=== PATIENT | female | born 1940 | race Two or more races ===

== ENCOUNTER 2017-01-07 10:40 | Inpatient (IN) | payer OTHER, MEDICARE ==
--- NOTE | 2017-01-07 10:48 | PDOC ---
History of Present Illness <Davin Shah - Last Filed: 01/07/17 11:57> - General History Source: Patient Exam Limitations: No Limitations - History of Present Illness Initial Comments: 01/07/17 13:52 Patient is a 76 year old female with a significant past medical history of hypertension, aortic valve repair ( 2 weeks post op ) and cervical spine stenosis who presents to the ED with heaviness and numbness to the left arm since 9:30 AM today. Patient was having breakfast around 9:30 was complaining of left arm heaviness and tingling numbness of the right arm. Patient was also complaining of a little dizziness and nausea during the episode this morning. Patient had an aortic valve repair about 2 weeks ago and had a CT done 10 days ago with same symptoms at the hospital she had a surgery in. Patient also had similar episode 6 years ago and was diagnosed with cervical spine stenosis. Patient saw auto accessories installer 2 weeks ago and had normal blood work. Patient denies any headache, facial tingling, numbness or weakness, no lower extermity sypmtoms, n/v, f/c, cp, palpitations, sob. <Ntahalia Dickson - Last Filed: 01/07/17 13:53> - General Chief Complaint: CVA/TIA Stated Complaint: LEFT ARM WEAKNESS Time Seen by Provider: 01/07/17 10:48 Past History - Past Medical History Anemia: No Asthma: No Cancer: No Cardiac Disorders: No CVA: No COPD: No CHF: No Dementia: No Diabetes: Yes GI Disorders: No Disorders: No HTN: Yes Hypercholesterolemia: No Liver Disease: No Seizures: No Thyroid Disease: No - Surgical History Abdominal Surgery: No Appendectomy: No Cardiac Surgery: No Cholecystectomy: Yes (LAP. CHOLECYS) Lung Surgery: No Neurologic Surgery: No Orthopedic Surgery: No - Psycho/Social/Smoking Cessation Hx Suicidal Ideation: No Smoking History: Never smoked Hx Alcohol Use: No Drug/Substance Use Hx: No Substance Use Type: None Hx Substance Use Treatment: No <Davin Shah - Last Filed: 01/07/17 11:57> <Nathalia Dickson - Last Filed: 01/07/17 13:53> - Past Medical History Allergies/Adverse Reactions: Allergies Allergy/AdvReac Type Severity Reaction Status Date / Time No Known Drug Allergies Allergy Verified 01/07/17 10:46 Home Medications: Ambulatory Orders Sitagliptin Phos/Metformin HCl [Janumet 50-500 mg Tablet] 1 tab PO BID 08/13/15 Acetaminophen [Tylenol] 650 mg PO Q6H PRN 01/07/17 Aspirin [ASA -] 81 mg PO DAILY 01/07/17 Docusate Sodium [Colace -] 100 mg PO TID PRN 01/07/17 Metoprolol Tartrate [Lopressor] 125 mg PO DAILY 01/07/17 Olmesartan Medoxomil [Benicar (Nf)] 20 mg PO DAILY 01/07/17 Rosuvastatin Calcium [Crestor] 10 mg PO HS 01/07/17 Tramadol HCl [Ultram] 50 mg PO Q6H PRN 01/07/17 Review of Systems - Review of Systems Able to Perform ROS?: Yes Comments:: 01/07/17 13:52 CONSTITUTIONAL: No reported: Fever, Chills, Diaphoresis, Generalized Weakness, Malaise, Loss of Appetite HEENT: No reported: Rhinorrhea, Nasal Congestion, Throat Pain, Throat Swelling, Difficulty Swallowing, Mouth Swelling, Ear Pain, Eye Pain, Visual Changes CARDIOVASCULAR: No reported: Chest Pain, Syncope, Palpitations, Irregular Heart Rate, Lightheadedness, Peripheral Edema RESPIRATORY: No reported: Cough, Shortness of Breath, SOB with Exertion, Orthopnea, Wheezing , Stridor, Hemoptysis GASTROINTESTINAL: No reported: Abdominal pain, Abdominal Distension, Nausea, Vomiting, Diarrhea, Constipation, Melena, Hematochezia GENITOURINARY: No reported: Dysuria, Frequency, Urgency, Hesitancy, Flank Pain, Genital Pain MUSCULOSKELETAL: Reported: Left arm heaviness. No reported: Myalgia, Arthralgia, Joint Swelling, Back pain, Neck Pain SKIN: No reported: Rash, Itching, Pallor HEMEATOLOGIC/IMMUNOLOGIC: No reported: Easy Bleeding, Easy Bruising, Lymphadenopathy, Frequent infections ENDOCRINE: No reported: Unexplained Weight Gain, Unexplained Weight Loss, Heat Intolerance , Cold Intolerance NEUROLOGIC: No reported: Headache, Focal Weakness, Paresthesias, Vertigo, Lightheadedness, Unsteady Gait, Seizure, Mental Status Changes, Incontinence PSYCHIATRIC: No reported: Anxiety, Depression <Nathalia Dickson - Last Filed: 01/07/17 13:53> *Physical Exam - Vital Signs Last Vital Signs Temp Pulse Resp BP Pulse Ox 97.8 F 64 18 120/71 99 01/07/17 13:13 01/07/17 13:13 01/07/17 13:13 01/07/17 13:13 01/07/17 13:46 - Physical Exam Comments: 01/07/17 13:53 GENERAL: The patient is awake, alert, and fully oriented, Nontoxic - in no acute distress. HEAD: Normocephalic, atraumatic. EYES: extraocular movements intact, sclera anicteric, conjunctiva clear. ENT: Normal voice, Moist mucous membranes. NECK: Normal range of motion, supple LUNGS/CHESt: sternal wound c/d/i, non erythemadous, Breath sounds equal, HEART: Regular rate and rhythm, without murmur, rub or gallop. ABDOMEN: Soft, nontender, normoactive bowel sounds. No guarding, no rebound.No CVA tenderness EXTREMITIES: Normal range of motion, no edema. NEUROLOGICAL: No facial assymetry, Normal speech, PSYCH: Normal mood, normal affect. SKIN: Warm, Dry, normal turgor. NEURO: Mental status: The patient is oriented x3. 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 romberg negative Cerebellar: Wqaawr-[id number] is normal in both upper extremities. Heel-knee- garnett is normal in both lower extremities. rapid alternating movements are normal. Reflexes: 2+ and symmetric in the upper and lower extremities. Gait: deferred <Nathalia Dickson - Last Filed: 01/07/17 13:53> NIH Stroke Scale - Last Known Well Date/Time & Onset Date Last Known Well: 01/07/17 Time Last Known Well: 09:30 - Initial Evaluation Level of consciousness: Alert Ask patient the month and their age: Answers both correctly Ask patient to open & close eyes; make fist and let go: Obeys both correctly Best gaze (horizontal eye movement): Normal Visual field testing: No visual field loss Facial paresis (Show teeth/raise eyebrows/close eyes tight): Normal symmetrical movement Motor Function: Left Arm: Drift Motor Function: Right Arm: Normal (extends arm 90 (or 45) degrees for 10 seconds without drift Motor Function: Left Leg: Normal (extends leg 30 degrees for 5 seconds without drift) Motor Function: Right Leg: Normal (extends leg 30 degrees for 5 seconds without drift) Limb Ataxia: No ataxia Sensory(Use pinprick test arms,legs,trunk,face/side to side): Normal Best language (Describe picture, name items, read sentences): No Aphasia Dysarthria (read several words): Normal articulation Extinction and Inattention: No abnormality - Total Score NIH Stroke Scale Score: 1 <Davin Shah - Last Filed: 01/07/17 11:57> tPA Exclusion Checklist 0-3hr - Time Elapsed Date last known well: 01/07/17 Time last known well: 09:30 Elaspsed time: Day(s) and 2 Hour(s) and 27 Minutes - Thrombolytic Therapy Candidate Is the patient eligible for Thrombolytic Therapy?: No - Relative Exclusion Criteria 0-3h Major surgery or serious trauma w/in previous 14 days: Yes - Ineligibility reason(s) Reasons No tPA given: See reason(s) noted above <Davin Shah - Last Filed: 01/07/17 11:57> Heart Score/ECG Review - ECG Impressions Comment:: 01/07/17 11:58 Twelve-lead EKG was performed and reviewed by me. There is normal sinus rhythm with a normal rate. Rate o f73 The axis is normal. Right bundle branch block left Anterior fasicular block <Ricky Shahan - Last Filed: 01/07/17 11:57> Critical Care Time/MDM Note - Medical Decision Making Note: 01/07/17 10:51 76y F hx of recent aoritc valve replacement, cervical spine stenosis, htn, presenting with sudden onset of L arm heaviness starting approximately 9:30 am, pt endorses mild headachhe this morning, denies any other speech changes, leg weakness, numbness/tingling/weakness. On arrival the patient had mild L arm drift, and code hudson was activated. BGM 236. AFter further discussoin with family members, apparently the patient had similar episodes of the weakness in the past and was dx with cervical spine stenosis (MRI from 2014), also had similar sypmtoms 10 day ago at [facility] after post op for her ao valve replacement (bioprosthetic) and had a negative CT head. suspect her sypmtoms maybe secondarry to her stenosis vs. cva. 01/07/17 11:32 ct head negative NIHSS = 1 pt is not a TPA candidate due to low NIHSS and recent major surgery will place in observation status 01/07/17 11:57 <Davin Shah - Last Filed: 01/07/17 11:57> - Medical Decision Making Note: 01/07/17 13:53 Documentation prepared by SCOTT Vivas, acting as medical aide for Davin Shah MD, /DO. <Nathalia Dickson - Last Filed: 01/07/17 13:53> Discharge Disposition - Discharge Dispostion Admit: Yes <Davin Shah - Last Filed: 01/07/17 11:57> <Nathalia Dickson - Last Filed: 01/07/17 13:53> - Diagnosis Left arm weakness - Discharge Dispostion Condition at time of disposition: Guarded
[2017-01-07] MEDS ORDERED: ACETAMINOPHEN 1000 MG/100 ML VIAL (NON FORMULARY) IVPB ONE (11:05)
[2017-01-07] MEDS ORDERED: LIDOCAINE 5% TOPICAL PATCH TP ONE (11:05)
[2017-01-07 11:09] LABS: BASOPHIL 3.3 % (0-2.0); EOSINOPHIL 5.5 % (0-4.5); MCH 28.3 pg (25.7-33.7); MCHC 33.6 g/dl (32.0-36.0); MEAN CELL VOLUME 84.1 fl (80-96); MEAN PLT VOLUME 8.4 fl (7.5-11.1); NEUTROPHILS 56.1 % (42.8-82.8); PLATELET COUNT 371 K/MM3 (134-434); RDW 13.1 % (11.6-15.6); WHITE BLOOD COUNT 7.2 K/mm3 (4.0-10.0)
[2017-01-07] MEDS ORDERED: ACETAMINOPHEN INJECTION 100 ML IVPB ONE (11:28)
[2017-01-07] MEDS ORDERED: ASPIRIN 81 MG CHEWABLE TABLETS PO ONE (11:43)
[2017-01-07] MEDS ORDERED: ASPIRIN 81 MG CHEWABLE TABLETS ONE (11:50)
[2017-01-07 11:54] LABS: ALBUMIN 3.1 g/dl (3.4-5.0); CALCIUM 8.9 mg/dL (8.5-10.1); CREATININE 1.3 mg/dL (0.55-1.02)
[2017-01-07 11:57] LABS: BILIRUBIN,TOTAL 0.4 mg/dL (0.2-1.0); TOT PROT 6.4 g/dl (6.4-8.2); TROPONIN I 0.06 ng/ml (0.00-0.05)
[2017-01-07 12:00] LABS: INR 1.16 (0.82-1.09); PROTHROMBIN TIME (PATIENT) 12.8 SEC (9.98-11.88)
--- NOTE | 2017-01-07 13:12 | CONSULT ---
Consult Consult Specialty:: Neurology Reason for Consultation:: Left arm weakness - History of Present Illness History of Present Illness: 76 year old woman with history of recent aortic valve replacement, cervical stenosis, hypertension, presents to ED with new onset of left arm weakness and sensory loss. The patient was eating breakfast at 930 am when she noted new onset of left arm weakness. On arrival, blood sugar 236. CT head showed no acute abnormalities. Exam reveals mild left arm weakness/sensory loss without any other neurological findings. Patient states she was on aspirin but stopped two days ago. As per discussion with family member, she has had similar episodes of left arm weakness in the past, and on post op day [address] [facility] head done at that time showed no acute pathology. - History Source History Provided By: Patient - Past Medical History Cardio/Vascular: Yes: HTN, Other (aortic valve replacement) - Alcohol/Substance Use Hx Alcohol Use: No - Smoking History Smoking history: Never smoked Have you smoked in the past 12 months: No Home Medications - Allergies Allergies/Adverse Reactions: Allergies Allergy/AdvReac Type Severity Reaction Status Date / Time No Known Drug Allergies Allergy Verified 01/07/17 10:46 - Home Medications Home Medications: Ambulatory Orders Sitagliptin Phos/Metformin HCl [Janumet 50-500 mg Tablet] 1 tab PO BID 08/13/15 Acetaminophen [Tylenol] 650 mg PO Q6H PRN 01/07/17 Aspirin [ASA -] 81 mg PO DAILY 01/07/17 Docusate Sodium [Colace -] 100 mg PO TID PRN 01/07/17 Metoprolol Tartrate [Lopressor] 125 mg PO DAILY 01/07/17 Olmesartan Medoxomil [Benicar (Nf)] 20 mg PO DAILY 01/07/17 Rosuvastatin Calcium [Crestor] 10 mg PO HS 01/07/17 Tramadol HCl [Ultram] 50 mg PO Q6H PRN 01/07/17 Review of Systems - Review of Systems Constitutional: reports: No Symptoms Eyes: reports: No Symptoms HENT: reports: No Symptoms Respiratory: reports: No Symptoms Neurological: reports: Numbness, Weakness Physical Exam Vital Signs: Vital Signs Temperature Pulse Rate 70 01/07/17 11:22 Respiratory Rate 18 01/07/17 11:22 Blood Pressure 93/67 01/07/17 11:22 O2 Sat by Pulse Oximetry (%) 98 01/07/17 11:22 Constitutional: Yes: No Distress, Calm Eyes: Yes: Conjunctiva Clear, EOM Intact HENT: Yes: Atraumatic, Normocephalic Neurological: Yes: Alert, Oriented, Cran Nerves II-XII Intact (left arm 4/5 muscle strength, ? sensory deficit left arm in no particular nerve distribution , right 5/5) Assessment/Plan 76 year old woman with history of recent aortic valve replacement, cervical stenosis, hypertension, presents to ED with new onset of left arm weakness and sensory loss. The patient was eating breakfast at 930 am when she noted new onset of left arm weakness. On arrival, blood sugar 236. CT head showed no acute abnormalities. Exam reveals mild left arm weakness/sensory loss without any other neurological findings. Patient states she was on aspirin but stopped two days ago. As per discussion with family member, she has had similar episodes of left arm weakness in the past, and on post op day [address] [facility] head done at that time showed no acute pathology. Left arm weakness Differential diagnosis includes stroke, TIA, cervical radiculopathy / myelopathy NIHSS 2 Patient was not a TPA candidate due to recent surgery Unable to perform MRI brain or cervical spine MRI due to wires in chest CT head shows no acute findings Recommend CT neck without contrast Recommend aspirin 81 mg daily if OK from cardiac standpoint (recent surgical procedure) Ordered carotid dopplers If above workup is unrevealing, consider NCV/EMG once outpatient to rule out cervical radiculopathy / myelopathy secondary to cervical stenosis Neuro checks Will follow
[2017-01-07 14:08] VITALS: BMI 26.8
--- NOTE | 2017-01-07 14:25 | HP ---
Admitting History and Physical - Admission Chief Complaint: Acute onset of left arm weakness and back pain History of Present Illness: 76 F, recent aortic valve replacement (bioprosthetic), cervical stenosis, and hypertension. 2 previous episodes of left arm weakness and pain thought to be due to spinal stenosis. On the 3 or 4th postop day after valve replacement had a similar episode. Workup was unrevealing. This AM at 9:30, while having breakfast, she developed acute onset of left scapular and back pain with associated left arm weakness. She also reported slight dizziness. No CP or SOB. No BOV or HARDEN. On arrival BGM and VS were stable. Awake and alert and responsive. She is noted to have a mild left hand weakness and mild decrease in sensation. CT Head: No acute pathology. History Source: Patient, Family Member Limitations to Obtaining History: No Limitations - Past Medical History Cardiovascular: Yes: HTN, Other (aortic valve replacement) ...: No - Smoking History Smoking history: Never smoked Have you smoked in the past 12 months: No - Alcohol/Substance Use Hx Alcohol Use: No Home Medications - Allergies Allergies/Adverse Reactions: Allergies Allergy/AdvReac Type Severity Reaction Status Date / Time No Known Drug Allergies Allergy Verified 01/07/17 10:46 - Home Medications Home Medications: Ambulatory Orders Sitagliptin Phos/Metformin HCl [Janumet 50-500 mg Tablet] 1 tab PO BID 08/13/15 Acetaminophen [Tylenol] 650 mg PO Q6H PRN 01/07/17 Aspirin [ASA -] 81 mg PO DAILY 01/07/17 Docusate Sodium [Colace -] 100 mg PO TID PRN 01/07/17 Metoprolol Tartrate [Lopressor] 125 mg PO DAILY 01/07/17 Olmesartan Medoxomil [Benicar (Nf)] 20 mg PO DAILY 01/07/17 Rosuvastatin Calcium [Crestor] 10 mg PO HS 01/07/17 Tramadol HCl [Ultram] 50 mg PO Q6H PRN 01/07/17 Review of Systems - Review of Systems Constitutional: denies: Chills, Fever, Lethargy, Loss of Appetite, Malaise, Night Sweats, Unintentional Wgt. Loss Eyes: reports: No Symptoms HENT: reports: No Symptoms Neck: reports: No Symptoms Cardiovascular: denies: Chest Pain, Palpitations, Shortness of Breath Respiratory: denies: Cough, Hemoptysis, PND, Snoring, SOB, SOB on Exertion, Wheezing Gastrointestinal: reports: No Symptoms Genitourinary: reports: No Symptoms Breasts: reports: No Symptoms Reported Musculoskeletal: reports: Back Pain, Decreased ROM, Muscle Pain, Muscle Cramps Integumentary: reports: Wound, Other (Healing sternal wound) Neurological: reports: Dizziness, Numbness, Parasthesia, Pre-Existing Deficit, Weakness. denies: Change in Speech, Confusion, Headache, Seizure, Syncope, Tremors Endocrine: reports: No Symptoms Hematology/Lymphatic: reports: No Symptoms Psychiatric: reports: No Symptoms Physical Examination Vital Signs: Vital Signs Temperature 97.8 F 01/07/17 13:13 Pulse Rate 64 01/07/17 13:13 Respiratory Rate 18 01/07/17 13:13 Blood Pressure 120/71 01/07/17 13:13 O2 Sat by Pulse Oximetry (%) 99 01/07/17 13:46 Constitutional: Yes: No Distress, Calm Eyes: Yes: Conjunctiva Clear, EOM Intact HENT: Yes: Atraumatic, Normocephalic Neck: Yes: Supple, Trachea Midline Cardiovascular: Yes: Regular Rate and Rhythm Respiratory: Yes: Regular, CTA Bilaterally, Other (healing sternal wound) Gastrointestinal: Yes: WNL, Normal Bowel Sounds, Soft ...Rectal Exam: Yes: Deferred Renal/: Yes: WNL Musculoskeletal: Yes: Back Pain, Joint Stiffness, Muscle Pain, Muscle Weakness Extremities: Yes: WNL Edema: No Peripheral Pulses WNL: Yes Integumentary: Yes: Other (healing sternal wound) Wound/Incision: Yes: Clean/Dry, Well Approximated Neurological: Yes: WNL, Alert, Oriented, Weakness ...Motor Strength: LUE (mild weakness and decrease in sensation) Psychiatric: Yes: WNL, Alert, Oriented Imaging - Results Chest X-ray: Report Reviewed, Image Reviewed Cat Scan: Report Reviewed, Image Reviewed Problem List - Problems (1) Left arm weakness Code(s): R29.898 - OT SYMPTOMS AND SIGNS INVOLVING THE MUSCULOSKELETAL SYSTEM (2) Hypertension Code(s): I10 - ESSENTIAL (PRIMARY) HYPERTENSION (3) H/O aortic valve replacement Code(s): Z95.2 - PRESENCE OF PROSTHETIC HEART VALVE (4) Transient ischemic attack (TIA) Code(s): G45.9 - TRANSIENT CEREBRAL ISCHEMIC ATTACK, UNSPECIFIED (5) Spinal stenosis Code(s): M48.00 - SPINAL STENOSIS, SITE UNSPECIFIED Assessment/Plan PLAN: Primary Neuro event should be ruled out ASA given in ER No MRI due to recent surgery Neuro consult BP monitoring Serial Neuro exam O2 as needed Lidoderm patches IV Tylenol Avoid opiates Telemetry / Stroke unit monitoring Dr Ortez
[2017-01-07] MEDS ORDERED: ACETAMINOPHEN 1000 MG/100 ML VIAL (NON FORMULARY) IVPB PRN (14:40)
[2017-01-07] MEDS ORDERED: SODIUM CHLORIDE 1,000 ML IV SCH (14:45)
[2017-01-07] MEDS ORDERED: ACETAMINOPHEN 325 MG TABLET (FP) PO PRN (15:15)
--- NOTE | 2017-01-07 15:18 | CONSULT ---
Consultation: REQUESTING PROVIDER: Dr. Marr CONSULT REQUEST: We have been asked to medically evaluate this patient for critical care HISTORY OF PRESENT ILLNESS: 76 yo F w/ PMHx of HTN, cervical spine stenosis, aortic valve repair 2 weeks ago at [facility] admitted to the ICU for stroke. In the ED, she presented with numbness and weakness in L arm for 3 hours associated with dizziness and nausea. She stated she still has pressure like chest discomfort after valve replacement and it's similar to the discomfort prior to the surgery. It's substernal, pressure like, 6/10, non-radiating, associated with sob. Denies fever, chills, n/v, abd pain, vision change, slurred speech, or fall. REVIEW OF SYSTEMS: CONSTITUTIONAL: Absent: fever, chills, diaphoresis, generalized weakness, malaise, loss of appetite, weight change HEENT: Absent: rhinorrhea, nasal congestion, throat pain, throat swelling, difficulty swallowing, mouth swelling, ear pain, eye pain, visual changes CARDIOVASCULAR: chest pain Absent:, syncope, palpitations, irregular heart rate, lightheadedness, peripheral edema RESPIRATORY: shortness of breath, Absent: cough, dyspnea with exertion, orthopnea, wheezing, stridor, hemoptysis GASTROINTESTINAL: Absent: abdominal pain, abdominal distension, nausea, vomiting, diarrhea, constipation, melena, hematochezia GENITOURINARY: Absent: dysuria, frequency, urgency, hesitancy, hematuria, flank pain, genital pain MUSCULOSKELETAL: L shoulder and neck pain Absent: myalgia, arthralgia, joint swelling, back pain SKIN: Absent: rash, itching, pallor HEMATOLOGIC/IMMUNOLOGIC: Absent: easy bleeding, easy bruising, lymphadenopathy, frequent infections ENDOCRINE: Absent: unexplained weight gain, unexplained weight loss, heat intolerance, cold intolerance NEUROLOGIC: Absent: headache, focal weakness or paresthesias, dizziness, unsteady gait, seizure, mental status changes, bladder or bowel incontinence PSYCHIATRIC: Absent: anxiety, depression, suicidal or homicidal ideation, hallucinations. PHYSICAL EXAMINATION Last Vital Signs Temp Pulse Resp BP Pulse Ox 97.8 F 64 18 120/71 99 01/07/17 13:13 01/07/17 13:13 01/07/17 13:13 01/07/17 13:13 01/07/17 13:46 GENERAL: AAO x 3, in no distress HEAD: AT, NC EYES: pupils equal and non-reactive, sclera anicteric, conjunctiva clear. No lid lag. NECK: No local tenderness LUNGS: CTAB HEART: RRR, no murmur, regurg, rub ABDOMEN: Soft, nontender, not distended, normoactive bowel sounds, no guarding, no rebound, no masses MUSCULOSKELETAL: Limited ROM in L shoulder UPPER EXTREMITIES: 3/5 in L arm strength, sensation intact b/l. LOWER EXTREMITIES: 5/5 in all lower extremities, trace edema. NEUROLOGICAL: Cranial nerves II-XII intact. Normal speech CBCD WBC 7.2 K/mm3 (4.0-10.0) 01/07/17 10:54 RBC 4.26 M/mm3 (3.60-5.2) 01/07/17 10:54 Hgb 12.0 GM/dL (10.7-15.3) 01/07/17 10:54 Hct 35.8 % (32.4-45.2) 01/07/17 10:54 MCV 84.1 fl (80-96) 01/07/17 10:54 MCHC 33.6 g/dl (32.0-36.0) 01/07/17 10:54 RDW 13.1 % (11.6-15.6) 01/07/17 10:54 Plt Count 371 K/MM3 (134-434) 01/07/17 10:54 MPV 8.4 fl (7.5-11.1) 01/07/17 10:54 CMP Sodium 137 mmol/L (136-145) 01/07/17 10:54 Potassium 4.6 mmol/L (3.5-5.1) 01/07/17 10:54 Chloride 103 mmol/L (98-107) 01/07/17 10:54 Carbon Dioxide 23 mmol/L (21-32) 01/07/17 10:54 Anion Gap 11 (8-16) 01/07/17 10:54 BUN 25 mg/dL (7-18) H 01/07/17 10:54 Creatinine 1.3 mg/dL (0.55-1.02) H 01/07/17 10:54 Creat Clearance w eGFR 39.93 (>60) 01/07/17 10:54 Calcium 8.9 mg/dL (8.5-10.1) 01/07/17 10:54 Total Bilirubin 0.4 mg/dL (0.2-1.0) 01/07/17 10:54 AST 13 U/L (15-37) L 01/07/17 10:54 ALT 14 U/L (12-78) 01/07/17 10:54 Alkaline Phosphatase 64 U/L (45-117) 01/07/17 10:54 Total Protein 6.4 g/dl (6.4-8.2) 01/07/17 10:54 Albumin 3.1 g/dl (3.4-5.0) L 01/07/17 10:54 Intake & Output 01/04/17 01/05/17 01/06/17 01/07/17 23:59 23:59 23:59 23:59 Weight 68.719 kg Active Medications Generic Name Dose Route Start Last Admin Trade Name Freq PRN Reason Stop Dose Admin Acetaminophen 1,000 mg 01/07/17 14:40 Ofirmev Injection - IVPB 01/08/17 08:41 Q6H PRN FEVER OR PAIN Aspirin 81 mg 01/08/17 10:00 Ecotrin - PO DAILY LAURO Sodium Chloride 1,000 mls @ 50 mls/hr 01/07/17 14:45 Normal Saline - IV 01/08/17 14:38 ASDIR LAURO Imaging: Head CT on 01/07: negative for stroke or bleed Cervical spin CT w/o contrast on 01/07: posterior spondylolisthesis of C4 on C5. Carotid doppler on 01/07: no stenosis CXR on 01/07: no acute pathology ASSESSMENT/PLAN: 76 yo F w/ PMHx of HTN, cervical spine stenosis, aortic valve repair 2 weeks ago at [facility] admitted to the ICU for stroke workup. Neuro: CVA vs. Cervical radiculopathy - CT Head and carotid doppler negative, CVA less likely - CT cervical spine shows spondylolisthesis of C4 on C5 * consider outpatient EMG * physical therapy as needed - Lidocaine patch and IV tylenol for pain control * cont. colace for narcotic-induced constipation Cardiac: s/p aortic valve replacement - Performed 2 weeks ago - Cont. crestor, lopressor, olmesartan - Will restart ASA tomorrow Endo: NIDDM - On sliding scale - BGM FEN - NS 50cc/hr - Normal lytes - Diabetic diet Prophylaxis - DVT: SCDs - GI: not indicated Disposition - May be discharged home tomorrow Code status - Full code Visit type - Emergency Visit Emergency Visit: Yes ED Registration Date: 01/07/17 Care time: The patient presented to the Emergency Department on the above date and was hospitalized for further evaluation of their emergent condition. - New Patient This patient is new to me today: Yes Date on this admission: 01/07/17 - Critical Care Critical Care patient: Yes Total Critical Care Time (in minutes): 35 Critical Care Statement: The care of this patient involved high complexity decision making to prevent further life threatening deterioration of the patient 's condition and/or to evalute & treat vital organ system(s) failure or risk of failure.
[2017-01-07] MEDS ORDERED: DOCUSATE SODIUM 100 MG CAPSULE (FP) PO PRN (15:22)
[2017-01-07] MEDS: INSULIN SLIDING SCALE (NOVOLOG) 1 VIAL SQ SCH ×2 (16:30→21:23)
[2017-01-07 18:15] LABS: URINE APPEARANCE CLEAR; URINE BILIRUBIN NEGATIVE (NEGATIVE); URINE BLOOD NEGATIVE (NEGATIVE); URINE COLOR LTYELLOW; URINE GLUCOSE (UA) NEGATIVE (NEGATIVE); URINE KETONE NEGATIVE (NEGATIVE); URINE NITRITE NEGATIVE (NEGATIVE); URINE PROTEIN NEGATIVE (NEGATIVE); URINE UROBILINOGEN NEGATIVE E.U./dl (0.2-1.0)
[2017-01-07 18:28] LABS: URINE LEUK ESTERASE 1+ (NEGATIVE)
[2017-01-07 18:34] LABS: URINE MUCUS RARE; URINE RBC 1 /hpf (0-3); URINE WBC 8 /hpf (3-5)
[2017-01-07] MEDS ORDERED: PT OWN MED DRAWER 7, Y5N ONE (21:13)
[2017-01-07] MEDS: MUPIROCIN 2% TOPICAL OINTMENT FOR DECOLONIZATION NS SCH (21:23)
[2017-01-07] MEDS ORDERED: CHLORHEXIDINE GLUCONATE 4% CLEANSER FOR DECOLONIZATION TP SCH (22:00)
[2017-01-07] MEDS ORDERED: ROSUVASTATIN CA 10 MG TABLET (FP) PO SCH (22:00)
[2017-01-07] MEDS: ACETAMINOPHEN 325 MG TABLET (FP) PO PRN (22:50)
[2017-01-08 06:35] LABS: CALCIUM 8.7 mg/dL (8.5-10.1); MAGNESIUM 1.8 mg/dL (1.8-2.4)
[2017-01-08 06:36] LABS: CREATININE 0.9 mg/dL (0.55-1.02)
[2017-01-08] MEDS: INSULIN SLIDING SCALE (NOVOLOG) 1 VIAL SQ SCH ×2 (06:36→11:24)
[2017-01-08 08:21] LABS: TROPONIN I 0.06 ng/ml (0.00-0.05)
[2017-01-08] MEDS ORDERED: ARFORMOTEROL TARTRATE 15 MCG/2 ML VIAL NEB SCH (10:00)
[2017-01-08] MEDS ORDERED: ASPIRIN COATED 81 MG TABLET.EC PO SCH (10:00)
[2017-01-08] MEDS ORDERED: VALSARTAN 160 MG TABLET (UD) PO SCH (10:00)
[2017-01-08] MEDS ORDERED: METOPROLOL TARTRATE 50 MG TABLET (FP) PO SCH (10:00)
[2017-01-08] MEDS: ACETAMINOPHEN 325 MG TABLET (FP) PO PRN (10:30)
[2017-01-08] MEDS ORDERED: PT OWN MED DRAWER 7, Y5N ONE (10:58)
[2017-01-08] MEDS: MUPIROCIN 2% TOPICAL OINTMENT FOR DECOLONIZATION NS SCH (11:00)
[2017-01-08] MEDS ORDERED: MUPIROCIN 2% TOPICAL OINTMENT 22 GM TUBE TP SCH (11:30)
--- NOTE | 2017-01-08 12:10 | PN ---
Teaching Attending Note Name of Resident: Shakeel Buck ATTENDING PHYSICIAN STATEMENT I saw and evaluated the patient. I reviewed the resident's note and discussed the case with the resident. I agree with the resident's findings and plan as documented. SUBJECTIVE: Pt seen and examined in the ICU. Still with some fingertip pain 3rd and 4th digits. Repeat CT head unchanged this AM. OBJECTIVE: Last Vital Signs Temp Pulse Resp BP Pulse Ox 97.7 F 93 H 18 120/66 96 01/08/17 06:00 01/08/17 09:45 01/08/17 07:58 01/08/17 07:58 01/08/17 09:45 Intake & Output 01/05/17 01/06/17 01/07/17 01/08/17 23:59 23:59 23:59 23:59 Intake Total 150 600 Output Total 700 Balance -550 600 Weight 151 lb 8 oz Gen: NAD at rest Heart: RRR Lung: decreased breath sounds at the bases Abd: soft, nontender Ext: no edema CBC, BMP 01/07/17 10:54 01/08/17 05:15 Active Medications Acetaminophen (Tylenol -) 325 mg PO Q6H PRN PRN Reason: FEVER OR PAIN Last Admin: 01/08/17 10:30 Dose: 325 mg Arformoterol Tartrate (Brovana (Restricted To Pulmonology/Resp) -) 1 amp NEB BID [facility] Last Admin: 01/08/17 10:25 Dose: 1 amp Aspirin (Ecotrin -) 81 mg PO DAILY [facility] Last Admin: 01/08/17 10:59 Dose: 81 mg Chlorhexidine Gluconate (Hibiclens For Decolonization -) 1 applic TP HS [facility] Last Admin: 01/07/17 21:22 Dose: 1 applic Docusate Sodium (Colace -) 100 mg PO TID PRN PRN Reason: CONSTIPATION Sodium Chloride (Normal Saline -) 1,000 mls @ 50 mls/hr IV ASDIR [facility] Stop: 01/08/17 14:38 Last Admin: 01/07/17 16:38 Dose: 50 mls/hr Insulin Aspart (Novolog Vial Sliding Scale -) 0 vial SQ ACHS [facility] PRN Reason: Protocol Last Admin: 01/08/17 11:24 Dose: Not Given Metoprolol Tartrate (Lopressor -) 125 mg PO DAILY [facility] Last Admin: 01/08/17 10:59 Dose: 125 mg Mupirocin (Bactroban Ointment (For Decolonization) -) 1 applic NS BID [facility] Stop: 01/12/17 21:59 Last Admin: 01/08/17 11:00 Dose: 1 applic Mupirocin (Bactroban 2% Ointment -) 1 applic TP BID [facility] Rosuvastatin Calcium (Crestor -) 10 mg PO HS [facility] Last Admin: 01/07/17 21:22 Dose: 10 mg Valsartan (Diovan -) 160 mg PO DAILY [facility] Last Admin: 01/08/17 10:59 Dose: 160 mg ASSESSMENT AND PLAN: Left Arm Weakness r/o Cervical Radiculopathy r/o TIA Recent AVR Cervical Stenosis HTN - echocardiogram - CT head negative - BP control - OOB to chair - can d/c home if echocardiogram unremarkable
--- NOTE | 2017-01-08 12:43 | PN ---
Progress Note (short form) - Note Progress Note: Neurology follow up note Consult Specialty:: Neurology Reason for Consultation:: Left arm weakness - History of Present Illness History of Present Illness: 76 year old woman with history of recent aortic valve replacement, cervical stenosis, hypertension, presents to ED with new onset of left arm weakness and sensory loss. The patient was eating breakfast at 930 am when she noted new onset of left arm weakness. On arrival, blood sugar 236. CT head showed no acute abnormalities. Exam reveals mild left arm weakness/sensory loss without any other neurological findings. Patient states she was on aspirin but stopped two days ago. As per discussion with family member, she has had similar episodes of left arm weakness in the past, and on post op day [address] [place] head done at that time showed no acute pathology. 11/10 Patient seen and examined. Left arm weakness improved, mild left deltoid weakness limited by neck pain Repeat CT head no acute findings Echocardiogram pending - History Source History Provided By: Patient - Past Medical History Cardio/Vascular: Yes: HTN, Other (aortic valve replacement) - Alcohol/Substance Use Hx Alcohol Use: No - Smoking History Smoking history: Never smoked Have you smoked in the past 12 months: No Home Medications - Allergies Allergies/Adverse Reactions: Allergies Allergy/AdvReac Type Severity Reaction Status Date / Time No Known Drug Allergies Allergy Verified 01/07/17 10:46 - Home Medications Home Medications: Ambulatory Orders Sitagliptin Phos/Metformin HCl [Janumet 50-500 mg Tablet] 1 tab PO BID 08/13/15 Acetaminophen [Tylenol] 650 mg PO Q6H PRN 01/07/17 Aspirin [ASA -] 81 mg PO DAILY 01/07/17 Docusate Sodium [Colace -] 100 mg PO TID PRN 01/07/17 Metoprolol Tartrate [Lopressor] 125 mg PO DAILY 01/07/17 Olmesartan Medoxomil [Benicar (Nf)] 20 mg PO DAILY 01/07/17 Rosuvastatin Calcium [Crestor] 10 mg PO HS 01/07/17 Tramadol HCl [Ultram] 50 mg PO Q6H PRN 01/07/17 Review of Systems - Review of Systems Constitutional: reports: No Symptoms Eyes: reports: No Symptoms HENT: reports: No Symptoms Respiratory: reports: No Symptoms Neurological: reports: Numbness, Weakness Physical Exam Constitutional: Yes: No Distress, Calm Eyes: Yes: Conjunctiva Clear, EOM Intact HENT: Yes: Atraumatic, Normocephalic Neurological: Yes: Alert, Oriented, Cran Nerves II-XII Intact (left deltoid 4/5 , left tricep and bicep 5/5, hand grasp 5/5 left, remainder 5/5, intact to light touch) Assessment/Plan 76 year old woman with history of recent aortic valve replacement, cervical stenosis, hypertension, presents to ED with new onset of left arm weakness and sensory loss. The patient was eating breakfast at 930 am when she noted new onset of left arm weakness. On arrival, blood sugar 236. CT head showed no acute abnormalities. Left arm weakness, improved Differential diagnosis , cervical radic, tia Patient was not a TPA candidate due to recent surgery Unable to perform MRI brain or cervical spine MRI due to wires in chest CT head x2 shows no acute changes CT neck shows c4-c5 spondolysthesis CD no significant stenosis Recommend aspirin 81 mg daily if OK from cardiac standpoint (recent surgical procedure) Recommend NCV/EMG once outpatient to rule out cervical radiculopathy / myelopathy secondary to cervical stenosis Physical therapy for left arm OK from neuro standpoint to discharge if echocardiogram within normal limits
--- NOTE | 2017-01-08 14:50 | DS ---
Physical Exam: SUBJECTIVE: Patient seen and examined at bedside in ICU. She reported feeling better. Complained of L hand MCP joint pain. Otherwise no acute event overnight. Denies shortness of breath, acute chest pain, n/v, fever, chills, urinary or bowel symptoms. OBJECTIVE: Vital Signs Period Temp Pulse Resp BP Sys/Jama Pulse Ox Last 24 Hr 97.7 F-98.5 F 66-95 18-24 103-134/58-83 96-99 PHYSICAL EXAM GENERAL: AAO x 3, in no distress HEAD: AT, NC EYES: pupils equal and non-reactive, sclera anicteric, conjunctiva clear. No lid lag. NECK: No local tenderness LUNGS: CTAB HEART: RRR, no murmur, regurg, rub ABDOMEN: Surgical scar on center of chest, no sign of infection, crepitus, drainage; soft, nt, +bs, MUSCULOSKELETAL: Limited ROM in L shoulder UPPER EXTREMITIES: 4/5 in L arm strength, sensation intact b/l. LOWER EXTREMITIES: 5/5 in all lower extremities, trace edema. NEUROLOGICAL: Cranial nerves II-XII intact. Normal speech CBCD WBC 7.2 K/mm3 (4.0-10.0) 01/07/17 10:54 RBC 4.26 M/mm3 (3.60-5.2) 01/07/17 10:54 Hgb 12.0 GM/dL (10.7-15.3) 01/07/17 10:54 Hct 35.8 % (32.4-45.2) 01/07/17 10:54 MCV 84.1 fl (80-96) 01/07/17 10:54 MCHC 33.6 g/dl (32.0-36.0) 01/07/17 10:54 RDW 13.1 % (11.6-15.6) 01/07/17 10:54 Plt Count 371 K/MM3 (134-434) 01/07/17 10:54 MPV 8.4 fl (7.5-11.1) 01/07/17 10:54 CMP Sodium 142 mmol/L (136-145) 01/08/17 05:15 Potassium 4.6 mmol/L (3.5-5.1) 01/08/17 05:15 Chloride 107 mmol/L (98-107) 01/08/17 05:15 Carbon Dioxide 26 mmol/L (21-32) 01/08/17 05:15 Anion Gap 9 (8-16) 01/08/17 05:15 BUN 22 mg/dL (7-18) H 01/08/17 05:15 Creatinine 0.9 mg/dL (0.55-1.02) D 01/08/17 05:15 Creat Clearance w eGFR 39.93 (>60) 01/07/17 10:54 Calcium 8.7 mg/dL (8.5-10.1) 01/08/17 05:15 Total Bilirubin 0.4 mg/dL (0.2-1.0) 01/07/17 10:54 AST 13 U/L (15-37) L 01/07/17 10:54 ALT 14 U/L (12-78) 01/07/17 10:54 Alkaline Phosphatase 64 U/L (45-117) 01/07/17 10:54 Total Protein 6.4 g/dl (6.4-8.2) 01/07/17 10:54 Albumin 3.1 g/dl (3.4-5.0) L 01/07/17 10:54 Imaging: Head CT on 01/08: negative for stroke or bleed Head CT on 01/07: negative for stroke or bleed ECHO on 01/08: EF 47%, normal LVF and RVF, functional prosthetic valve, echodensity in RA (?artifact) Cervical spin CT w/o contrast on 01/07: posterior spondylolisthesis of C4 on C5. Carotid doppler on 01/07: no stenosis CXR on 01/07: no acute pathology HOSPITAL COURSE: Date of Admission:01/07/17 76 yo F w/ PMHx of HTN, cervical spine stenosis, aortic valve repair 2 weeks ago at [place] admitted to the ICU for stroke. On morning, she experienced L arm weakness, numbness, and tingling since 9:30am without change in speech, vision, sensation, consciousness, or focal weakness in other part of body. The symptoms lasted about 3 hours associated with dizziness and nausea. She stated she still has pressure like chest discomfort after valve replacement and it's similar to the discomfort prior to the surgery. It's substernal, pressure like, 6/10, non-radiating, associated with sob. Patient's surgical history and clinical presentation indicated stroke unlikely and tPA was contraindicated. First head CT was negative for stroke and cervical spin CT w/o contrast showed posterior spondylolisthesis of C4 on C5. On admission day 2, her weakness/numbness in the L upper extremity has improved. Repeat CT, ECHO and carotid doppler are all negative for embolic or thrombotic causes of stroke. Patient is advised to follow up with neurologist for EMG test and continue physical therapy. She's now in stable condition to be discharged home. Date of Discharge: 01/08/17 Minutes to complete discharge: 45 Discharge Summary Reason For Visit: WEAKNESS LEFT UPPER EXTREMITY Current Active Problems Left arm weakness (Acute) H/O aortic valve replacement (Chronic) Hypertension (Chronic) Spinal stenosis (Chronic) Condition: Improved - Instructions Diet, Activity, Other Instructions: Instruction for continuing care: You were hospitalized because we thought you had a stroke. After extensive work- up, stroke seems unlikely. The weakness, numbness, and tingling you experienced could have been originated from cervical radiculopathy, which can be confirmed by EMG in a brain doctor's office. 1. Please continue all your home medication including aspirin 2. Please follow up with your primary doctor (Dr. Ortez), heart doctor ( Dr. Quesada) and brain doctor (Dr. Robin) within 2 weeks 3. Pain medications as needed for neck/joint pain 4. Please arrange physical therapy and EMG test with your primary or brain doctor Referrals: Frantz Robin MD [Staff Physician] - Dk Quesada MD [Staff Physician] - Vickey Ortez MD [Primary Care Provider] - Abe Bee [Non Staff, Medical] - Disposition: HOME - Home Medications Comprehensive Discharge Medication List: Ambulatory Orders Sitagliptin Phos/Metformin HCl [Janumet 50-500 mg Tablet] 1 tab PO BID 08/13/15 Acetaminophen [Tylenol] 650 mg PO Q6H PRN 01/07/17 Aspirin [ASA -] 81 mg PO DAILY 01/07/17 Docusate Sodium [Colace -] 100 mg PO TID PRN 01/07/17 Metoprolol Tartrate [Lopressor] 125 mg PO DAILY 01/07/17 Olmesartan Medoxomil [Benicar -] 20 mg PO DAILY 01/07/17 Rosuvastatin Calcium [Crestor] 10 mg PO HS 01/07/17 Tramadol HCl [Ultram -] 50 mg PO Q6H PRN 01/07/17 Arformoterol Tartrate [Brovana -] 1 amp NEB BID amp 01/08/17 This patient is new to me today: No Emergency Visit: No Critical Care patient: Yes Total Critical Care Time (in minutes): 45 Critical Care Statement: The care of this patient involved high complexity decision making to prevent further life threatening deterioration of the patient 's condition and/or to evalute & treat vital organ system(s) failure or risk of failure. - Discharge Referral Referred to [facility] Med P.C.: No
--- NOTE | 2017-01-08 14:52 | PN ---
Progress Note (short form) - Note Progress Note: Echocardiogram result in chart reviewed LV normal, bioprosthetic aortic valve Echodensity in RA probably artifact, consider SHLEBY vs CTA Informed primary team of results Recommend cardiology input due to ?RA artifact
[2017-01-08 15:27] VITALS: TEMP 98.4
[2017-01-08 16:08] VITALS: BP 134/67; PULSE 84
== END 2017-01-08 16:59 | disposition home or self-care (01) | DRG 74 ==
LOC: JER 10:40 → JERBED 11:34 → JICU 13:07 → OBSVTOIN 15:15
PROVIDERS: ADMIT Internal Medicine Pulmonary Disease; ATTEND Internal Medicine Pulmonary Disease
DX: M54.12 Radiculopathy, cervical region (principal); M43.12 Spondylolisthesis, cervical region; R20.0 Anesthesia of skin; I10 Essential (primary) hypertension; Z95.2 Presence of prosthetic heart valve; R42 Dizziness and giddiness; E11.9 Type 2 diabetes mellitus without complications; M48.02 Spinal stenosis, cervical region; R29.898 Other symptoms and signs involving the musculoskeletal system
CPT/HCPCS: 36415; 70450-TC; 71010-TC; 72125-TC; 80048; 80053; 81003; 81015; 82465; 82550; 83036; 83718; 83721; 83735; 84478; 84484; 85025; 85610; 86850; 86900; 86901; 93005; 93010; 93306-TC; 93880-TC; 94640; 97116-GP; 97162-GP; 99285-25; G0378

== ENCOUNTER 2022-01-06 17:11 | Inpatient (IN) | payer OTHER, MEDICARE ==
[2022-01-06] MEDS ORDERED: SODIUM CHLORIDE 0.9% 500 ML INFUS.BAG IV ONE (17:30)
[2022-01-06] MEDS ORDERED: ACETAMINOPHEN 1000 MG/100 ML BAG IVPB ONE (17:30)
[2022-01-06] MEDS ORDERED: ACETAMINOPHEN INJECTION 100 ML IVPB ONE (17:41)
[2022-01-06 18:32] LABS: VENOUS BASE EXCESS -5.1 mmol/L (-2-2); VENOUS PCO2 38.5 mmHg (38-52); VENOUS PH 7.338 (7.310-7.410)
[2022-01-06 18:39] LABS: BASO % 0.1 % (0-2.0); HEMATOCRIT 39.9 % (32.4-45.2); HEMOGLOBIN 13.5 GM/dL (10.7-15.3); LYMPH % 8.9 % (8-40); MCH 29.3 pg (25.7-33.7); MCHC 33.9 g/dl (32.0-36.0); MEAN CELL VOLUME 86.3 fl (80-96); MEAN PLT VOLUME 8.8 fl (7.5-11.1); MONO % 2.8 % (3.8-10.2); NEUT % 87.2 % (42.8-82.8); PLATELET COUNT 187 10^3/uL (134-434); RBC 4.63 M/mm3 (3.60-5.2); RDW 13.6 % (11.6-15.6); WHITE BLOOD COUNT 6.7 K/mm3 (4.0-10.0)
[2022-01-06 18:48] LABS: INR 0.97 (0.83-1.09); PROTHROMBIN TIME (PATIENT) 11.2 SEC (9.7-13.0)
[2022-01-06] MEDS ORDERED: ACETAMINOPHEN 325 MG TABLET (FP) PO PRN (18:49)
[2022-01-06] MEDS ORDERED: VANCOMYCIN 1 GM in D5W (PRE-DOCKED) 1,000 MG/250 ML IVPB ONE (18:52)
[2022-01-06] MEDS ORDERED: PIPERACILLIN/TAZOB 4.5 GM 4.5 GM in DEXTROSE 5%-WATER 100 ML IVPB ONE (18:52)
[2022-01-06 18:55] LABS: ALBUMIN 3.7 g/dl (3.4-5.0); BLOOD UREA NITROGEN 26.1 mg/dL (7-18); CALCIUM 8.7 mg/dL (8.5-10.1)
[2022-01-06 18:58] LABS: CREATININE 1.2 mg/dL (0.55-1.3)
[2022-01-06 19:00] LABS: BILIRUBIN,TOTAL 0.3 mg/dL (0.2-1); TOT PROT 6.5 g/dl (6.4-8.2)
[2022-01-06] MEDS ORDERED: VANCOMYCIN 1 GRAM (PRE-DOCKED) 1,000 MG/250 ML BAG IVPB ONE (19:35)
[2022-01-06 19:47] LABS: EPI CELLS 11 /uL (0-25.1); HYALINE CASTS 0 /uL (0-3.1); URINE APPEARANCE CLEAR; URINE BACTERIA 14 /uL (0-1359); URINE BILIRUBIN NEGATIVE (NEGATIVE); URINE COLOR YELLOW; URINE GLUCOSE (UA) NEGATIVE (NEGATIVE); URINE KETONE NEGATIVE (NEGATIVE); URINE LEUK ESTERASE NEGATIVE (NEGATIVE); URINE NITRITE NEGATIVE (NEGATIVE); URINE PROTEIN 3+ (NEGATIVE); URINE RBC 7 /uL (0-23.9); URINE UROBILINOGEN 0.2 mg/dL (0.2-1.0); URINE WBC 9 /uL (0-25.8)
[2022-01-06] MEDS ORDERED: guaiFENesin 200 MG/10 ML 10 ML UNIT-DOSE CUPS PO PRN (20:23)
[2022-01-06] MEDS ORDERED: REMDESIVIR 200 MG in SODIUM CHLORIDE 250 ML IVPB ONE (21:00)
[2022-01-06] MEDS ORDERED: PIPERACILLIN/TAZOBACTAM 4.5 GM VIAL IVPB ONE (22:12)
[2022-01-06] MEDS ORDERED: DEXTROSE 5%-WATER 100 ML IVPB ONE (22:12)
[2022-01-06] MEDS: MUPIROCIN 2% TOPICAL OINTMENT FOR DECOLONIZATION NS SCH (22:18)
[2022-01-06] MEDS: HEPARIN NA (PORCINE) 5,000 UNITS/ML 1ML VIAL SQ SCH (22:19)
[2022-01-06] MEDS: CHLORHEXIDINE GLUCONATE 4% CLEANSER FOR DECOLONIZATION TP SCH (22:19)
[2022-01-06] MEDS: ROSUVASTATIN CA 10 MG TABLET PO SCH (22:21)
[2022-01-06] MEDS: INSULIN SLIDING SCALE (NOVOLOG) 1 VIAL SQ SCH (22:43)
[2022-01-07] MEDS ORDERED: PIPERACILLIN/TAZOBACTAM 4.5 GM VIAL IVPB ONE ×4 (05:35→23:50)
[2022-01-07] MEDS ORDERED: DEXTROSE 5%-WATER 100 ML IVPB ONE ×4 (05:35→23:50)
[2022-01-07] MEDS: PIPERACILLIN/TAZOB 4.5 GM 4.5 GM in DEXTROSE 5%-WATER 100 ML IVPB SCH ×3 (06:13→18:22)
[2022-01-07] MEDS: INSULIN SLIDING SCALE (NOVOLOG) 1 VIAL SQ SCH ×4 (06:26→22:19)
[2022-01-07 06:39] LABS: HEMATOCRIT 37.2 % (32.4-45.2); HEMOGLOBIN 12.6 GM/dL (10.7-15.3); MCH 29.5 pg (25.7-33.7); MEAN CELL VOLUME 86.8 fl (80-96); MEAN PLT VOLUME 8.6 fl (7.5-11.1); PLATELET COUNT 161 10^3/uL (134-434); RBC 4.29 M/mm3 (3.60-5.2); RDW 13.7 % (11.6-15.6)
[2022-01-07 07:00] LABS: CALCIUM 7.9 mg/dL (8.5-10.1); MAGNESIUM 1.7 mg/dL (1.8-2.4)
[2022-01-07 07:02] LABS: ALBUMIN 3.1 g/dl (3.4-5.0); BLOOD UREA NITROGEN 18.3 mg/dL (7-18)
[2022-01-07 07:03] LABS: CREATININE 1.1 mg/dL (0.55-1.3)
[2022-01-07 07:05] LABS: PHOSPHOROUS 3.2 mg/dL (2.5-4.9); TOT PROT 5.6 g/dl (6.4-8.2)
[2022-01-07 07:06] LABS: BILIRUBIN,TOTAL 0.6 mg/dL (0.2-1)
[2022-01-07] MEDS ORDERED: MAGNESIUM OXIDE 400 MG TABLET (FP) PO ONE (09:15)
[2022-01-07] MEDS ORDERED: LOSARTAN POTASSIUM 50 MG TABLET PO SCH (10:00)
[2022-01-07] MEDS ORDERED: metoPROLOL SUCCINATE 25 MG TAB.SR.24H (FP) PO SCH (10:00)
[2022-01-07] MEDS: HEPARIN NA (PORCINE) 5,000 UNITS/ML 1ML VIAL SQ SCH ×2 (10:26→22:01)
[2022-01-07] MEDS: MUPIROCIN 2% TOPICAL OINTMENT FOR DECOLONIZATION NS SCH ×2 (10:27→22:19)
[2022-01-07] MEDS: LACTOBACILLUS ACIDOPHILUS 1 TABLET PO SCH (11:46)
[2022-01-07] MEDS: guaiFENesin/D-M SUGAR-FREE/ACLHOL-FREE 118 ML BOTTLE PO PRN ×2 (18:22→22:18)
[2022-01-07] MEDS ORDERED: metoPROLOL SUCCINATE 25 MG TAB.SR.24H (FP) PO ONE (19:30)
[2022-01-07] MEDS: VANCOMYCIN/WATER FOR INJ (PEG) 1,000 MG/200 ML BAG IVPB SCH (19:42)
[2022-01-07] MEDS: REMDESIVIR 100 MG in SODIUM CHLORIDE 250 ML IVPB SCH (22:00)
[2022-01-07] MEDS: ROSUVASTATIN CA 10 MG TABLET PO SCH (22:01)
[2022-01-07] MEDS: CHLORHEXIDINE GLUCONATE 4% CLEANSER FOR DECOLONIZATION TP SCH (22:19)
[2022-01-08] MEDS: PIPERACILLIN/TAZOB 4.5 GM 4.5 GM in DEXTROSE 5%-WATER 100 ML IVPB SCH ×3 (02:35→17:57)
[2022-01-08] MEDS: INSULIN SLIDING SCALE (NOVOLOG) 1 VIAL SQ SCH ×4 (07:08→22:00)
[2022-01-08 07:09] LABS: HEMATOCRIT 41.6 % (32.4-45.2); HEMOGLOBIN 13.7 GM/dL (10.7-15.3); MCH 28.9 pg (25.7-33.7); MEAN CELL VOLUME 87.4 fl (80-96); PLATELET COUNT 180 10^3/uL (134-434); RBC 4.76 M/mm3 (3.60-5.2); RDW 13.6 % (11.6-15.6); WHITE BLOOD COUNT 3.9 K/mm3 (4.0-10.0)
[2022-01-08 07:23] LABS: ALBUMIN 3.4 g/dl (3.4-5.0); BLOOD UREA NITROGEN 14.5 mg/dL (7-18); CALCIUM 8.9 mg/dL (8.5-10.1)
[2022-01-08 07:26] LABS: PHOSPHOROUS 3.1 mg/dL (2.5-4.9)
[2022-01-08 07:28] LABS: BILIRUBIN,TOTAL 0.6 mg/dL (0.2-1); TOT PROT 6.2 g/dl (6.4-8.2)
[2022-01-08] MEDS ORDERED: PIPERACILLIN/TAZOBACTAM 4.5 GM VIAL IVPB ONE ×2 (09:09→17:17)
[2022-01-08] MEDS ORDERED: DEXTROSE 5%-WATER 100 ML IVPB ONE ×2 (09:10→17:17)
[2022-01-08] MEDS: guaiFENesin/D-M SUGAR-FREE/ACLHOL-FREE 118 ML BOTTLE PO PRN ×2 (09:24→19:59)
[2022-01-08] MEDS: LACTOBACILLUS ACIDOPHILUS 1 TABLET PO SCH (09:25)
[2022-01-08] MEDS: amLODIPine BESYLATE 5 MG TABLET (FP) PO SCH (09:25)
[2022-01-08] MEDS: LOSARTAN POTASSIUM 50 MG TABLET PO SCH (09:25)
[2022-01-08] MEDS: HEPARIN NA (PORCINE) 5,000 UNITS/ML 1ML VIAL SQ SCH ×2 (09:26→21:52)
[2022-01-08] MEDS: MUPIROCIN 2% TOPICAL OINTMENT FOR DECOLONIZATION NS SCH ×2 (09:26→21:52)
[2022-01-08 14:39] VITALS: BMI 31.2
[2022-01-08] MEDS: VANCOMYCIN/WATER FOR INJ (PEG) 1,000 MG/200 ML BAG IVPB SCH (19:58)
[2022-01-08] MEDS: ROSUVASTATIN CA 10 MG TABLET PO SCH (21:52)
[2022-01-08] MEDS: REMDESIVIR 100 MG in SODIUM CHLORIDE 250 ML IVPB SCH (21:52)
[2022-01-08] MEDS: CHLORHEXIDINE GLUCONATE 4% CLEANSER FOR DECOLONIZATION TP SCH (21:53)
[2022-01-08 21:59] LABS: EPI CELLS 3 /uL (0-25.1); HYALINE CASTS 0 /uL (0-3.1); PH,URINE 5.5 (5.0-8.0); URINE APPEARANCE CLEAR; URINE BACTERIA 3 /uL (0-1359); URINE BILIRUBIN NEGATIVE (NEGATIVE); URINE COLOR YELLOW; URINE GLUCOSE (UA) NEGATIVE (NEGATIVE); URINE KETONE NEGATIVE (NEGATIVE); URINE LEUK ESTERASE NEGATIVE (NEGATIVE); URINE NITRITE NEGATIVE (NEGATIVE); URINE PROTEIN 1+ (NEGATIVE); URINE RBC 4 /uL (0-23.9); URINE WBC 2 /uL (0-25.8)
[2022-01-09] MEDS ORDERED: HYDROCORTISONE 2.5% TOPICAL CREAM 30 GM TUBE RC SCH (01:00)
[2022-01-09] MEDS ORDERED: DEXTROSE 5%-WATER 100 ML IVPB ONE ×2 (02:07→08:33)
[2022-01-09] MEDS ORDERED: PIPERACILLIN/TAZOBACTAM 4.5 GM VIAL IVPB ONE ×2 (02:07→08:33)
[2022-01-09] MEDS: PIPERACILLIN/TAZOB 4.5 GM 4.5 GM in DEXTROSE 5%-WATER 100 ML IVPB SCH ×2 (02:08→09:13)
[2022-01-09] MEDS: INSULIN SLIDING SCALE (NOVOLOG) 1 VIAL SQ SCH ×2 (06:21→11:40)
[2022-01-09 08:08] LABS: EOS % 6.8 % (0-4.5); HEMATOCRIT 40.6 % (32.4-45.2); HEMOGLOBIN 13.6 GM/dL (10.7-15.3); LYMPH % 38.4 % (8-40); MCH 29.2 pg (25.7-33.7); MCHC 33.6 g/dl (32.0-36.0); MEAN CELL VOLUME 86.8 fl (80-96); MEAN PLT VOLUME 8.9 fl (7.5-11.1); MONO % 9.3 % (3.8-10.2); NEUT % 44.5 % (42.8-82.8); PLATELET COUNT 190 10^3/uL (134-434); RBC 4.67 M/mm3 (3.60-5.2); RDW 13.6 % (11.6-15.6); WHITE BLOOD COUNT 3.6 K/mm3 (4.0-10.0)
[2022-01-09] MEDS: LOSARTAN POTASSIUM 50 MG TABLET PO SCH (09:14)
[2022-01-09] MEDS: LACTOBACILLUS ACIDOPHILUS 1 TABLET PO SCH (09:14)
[2022-01-09] MEDS: MUPIROCIN 2% TOPICAL OINTMENT FOR DECOLONIZATION NS SCH (09:14)
[2022-01-09] MEDS: amLODIPine BESYLATE 5 MG TABLET (FP) PO SCH (09:15)
[2022-01-09] MEDS: HEPARIN NA (PORCINE) 5,000 UNITS/ML 1ML VIAL SQ SCH (09:15)
[2022-01-09 13:43] VITALS: BP 159/81; PULSE 64; TEMP 98
== END 2022-01-09 13:30 | disposition home or self-care (01) | DRG 862 ==
LOC: JER 17:11 → JERBED 18:44 → JICU 21:44
PROVIDERS: ADMIT Family Medicine; ATTEND Family Medicine
PROC: XW033E5 Introduction of Remdesivir Anti-infective into Peripheral Vein, Percutaneous Approach, New Technology Group 5 (ICD-10-PCS; principal; 2022-01-06)
DX: T81.49XA Infection following a procedure, other surgical site, initial encounter (principal); U07.1 COVID-19; J98.11 Atelectasis; I10 Essential (primary) hypertension; E78.00 Pure hypercholesterolemia, unspecified; E78.5 Hyperlipidemia, unspecified; N28.1 Cyst of kidney, acquired; R35.0 Frequency of micturition; I51.7 Cardiomegaly; R06.09 Other forms of dyspnea; E86.0 Dehydration; E11.9 Type 2 diabetes mellitus without complications; Y83.9 Surgical procedure, unspecified as the cause of abnormal reaction of the patient, or of later complication, without mention of misadventure at the time of the procedure; M48.02 Spinal stenosis, cervical region
CPT/HCPCS: 36415; 71045-TC-FY; 71260-TC; 74177-TC; 80053; 80061; 81003; 82553; 82570; 82803; 82962; 83036; 83605; 83735; 84100; 84156; 84484; 85025; 85027; 85610; 85651; 85730; 86140; 86850; 86900; 86901; 87040; 87086; 87804; 87807; 93005; 93010; 99285-25; C9399; C9803-CS; G0463-25; J1644; Q9967; U0003; U0005

== ENCOUNTER 2022-04-21 07:25 | Inpatient (IN) | payer OTHER, MEDICARE ==
[2022-04-16 10:45] VITALS: BMI 34.2
[~2022-04-21 07:25] MED LIST: VANCOMYCIN 1,000 MG VIAL (RESTRICTED TO ID ONLY) IVPB ONE
[2022-04-21] MEDS ORDERED: MIDAZOLAM HCL 2 MG/2 ML SINGLE DOSE VIAL ONE ×2 (07:54→09:45)
[2022-04-21] MEDS ORDERED: BUPIVACAINE HCL/PF 0.5% (5MG/ML) 10 ML VIAL ONE (07:54)
[2022-04-21] MEDS ORDERED: BUPIVACAINE LIPOSOME/PF (EXPAREL) 266 MG/20 ML VIAL ONE (07:54)
[2022-04-21] MEDS ORDERED: BUPIVACAINE HCL 50 ML ONE (08:04)
[2022-04-21] MEDS ORDERED: VANCOMYCIN 1,000 MG VIAL (RESTRICTED TO ID ONLY) ONE (08:15)
[2022-04-21] MEDS ORDERED: ceFAZolin SODIUM 1 GM VIAL ONE ×2 (08:15→09:53)
[2022-04-21] MEDS ORDERED: TRANEXAMIC ACID 1000 MG/10 ML VIAL IVPUSH ONE (09:30)
[2022-04-21] MEDS ORDERED: CELECOXIB 200 MG CAPSULE PO ONE (09:30)
[2022-04-21] MEDS ORDERED: CEFAZOLIN 2 GM in DEXTROSE 5%-WATER - 50 ML IVPB ONE (09:30)
[2022-04-21] MEDS ORDERED: MAG HYDROX/AL HYDROX/SIMETH 30 ML UNIT-DOSE CUP PO PRN (09:35)
[2022-04-21] MEDS ORDERED: ONDANSETRON 4 MG/2 ML VIAL IVPUSH PRN (09:35)
[2022-04-21] MEDS ORDERED: LACTATED RINGERS SOLUTION 1,000 ML IV SCH ×2 (09:45→12:00)
[2022-04-21] MEDS ORDERED: DEXAMETHASONE SOD PHOSPHATE 4 MG/1 ML VIAL ONE (09:53)
[2022-04-21] MEDS ORDERED: ONDANSETRON 4 MG/2 ML VIAL ONE (09:53)
[2022-04-21] MEDS ORDERED: TRANEXAMIC ACID 1000 MG/10 ML VIAL ONE (09:53)
[2022-04-21] MEDS ORDERED: PROPOFOL 20 ML ONE (10:02)
[2022-04-21] MEDS ORDERED: VANCOMYCIN 1,000 MG VIAL (RESTRICTED TO ID ONLY) IVPB ONE (11:00)
[2022-04-21] MEDS ORDERED: METOPROLOL TARTRATE 5 MG/5 ML VIAL ONE (11:46)
[2022-04-21] MEDS ORDERED: METOPROLOL TARTRATE 5 MG/5 ML VIAL IVPUSH ONE (11:57)
[2022-04-21] MEDS: ACETAMINOPHEN 1000 MG/100 ML BAG IVPB ONE (12:05)
[2022-04-21] MEDS ORDERED: DEXTROSE 5%-WATER 100 ML IVPB ONE (17:32)
[2022-04-21] MEDS ORDERED: CEFAZOLIN SODIUM 2 GM VIAL ONE (17:33)
[2022-04-21] MEDS: CEFAZOLIN SODIUM 2 GM in DEXTROSE 5%-WATER 100 ML IVPB SCH (17:43)
[2022-04-21] MEDS: hydrALAZINE HCL 10 MG TABLET PO SCH ×2 (18:54→22:17)
[2022-04-21] MEDS: oxyCODONE HCL 5 MG TABLET PO PRN (20:13)
[2022-04-21] MEDS: ACETAMINOPHEN 500 MG TABLET (FP) PO SCH (20:14)
[2022-04-21] MEDS: NEBIVOLOL 10 MG TABLET (FP) PO SCH (22:16)
[2022-04-21] MEDS: oxyCODONE HCL 10 MG SUSTAINED ACTING TABLET PO SCH (22:17)
[2022-04-21] MEDS: SENNOSIDES/DOCUSATE COMBO (SENNA PLUS) TABLET (UD) PO SCH (22:18)
[2022-04-22] MEDS ORDERED: CEFAZOLIN SODIUM 2 GM VIAL ONE (00:49)
[2022-04-22] MEDS ORDERED: DEXTROSE 5%-WATER 100 ML IVPB ONE (00:49)
[2022-04-22] MEDS: oxyCODONE HCL 5 MG TABLET PO PRN ×2 (00:53→05:26)
[2022-04-22] MEDS: CEFAZOLIN SODIUM 2 GM in DEXTROSE 5%-WATER 100 ML IVPB SCH (01:02)
[2022-04-22] MEDS: ACETAMINOPHEN 500 MG TABLET (FP) PO SCH ×3 (02:04→14:58)
[2022-04-22] MEDS ORDERED: sitaGLIPtin PHOSPHATE 50 MG TABLET PO SCH (07:00)
[2022-04-22] MEDS: MULTIVITAMINS (DAILY MVI) TABLET (FP) PO SCH ×2 (07:27→09:38)
[2022-04-22] MEDS: ACETAMINOPHEN 1000 MG/100 ML BAG IVPB ONE (07:27)
[2022-04-22] MEDS: NEBIVOLOL 10 MG TABLET (FP) PO SCH ×2 (07:27→09:38)
[2022-04-22] MEDS: LOSARTAN POTASSIUM 50 MG TABLET PO SCH ×2 (07:27→09:40)
[2022-04-22] MEDS: PANTOPRAZOLE 40 MG TABLET PO SCH ×2 (07:27→09:37)
[2022-04-22] MEDS ORDERED: ASPIRIN 325 MG TABLET PO SCH (08:00)
[2022-04-22 08:30] LABS: HEMATOCRIT 33.8 % (32.4-45.2); HEMOGLOBIN 11.5 G/dL (10.7-15.3); MCH 30.4 pg (25.7-33.7); MCHC 34.1 g/dl (32.0-36.0); MEAN CELL VOLUME 88.9 fl (80-96); MEAN PLT VOLUME 8.9 fl (7.5-11.1); PLATELET COUNT 249.5 10^3/uL (134-434); WHITE BLOOD COUNT 8.9 10^3/uL (4.0-10.8)
[2022-04-22 09:21] VITALS: PULSE 68
[2022-04-22] MEDS: oxyCODONE HCL 10 MG SUSTAINED ACTING TABLET PO SCH (09:36)
[2022-04-22 09:37] LABS: ALBUMIN 3.1 g/dl (3.4-5.0); ALK PHOS 43 U/L (45-117); BILIRUBIN,TOTAL 0.8 mg/dl (0.2-1); CALCIUM 8.7 mg/dl (8.5-10); CO2 25 mmol/L (21-32); CREATININE 1.1 mg/dl (0.55-1.3); GLUCOSE,RANDOM 119 mg/dl (74-106); MAGNESIUM 1.5 mg/dL (1.8-2.4); SGOT/AST 20 U/L (15-37); SGPT/ALT 10 U/L (13-61); SODIUM 135 mmol/L (136-145); TOT PROT 5.4 g/dl (6.4-8.2)
[2022-04-22] MEDS: SENNOSIDES/DOCUSATE COMBO (SENNA PLUS) TABLET (UD) PO SCH (09:37)
[2022-04-22] MEDS: hydrALAZINE HCL 10 MG TABLET PO SCH (09:38)
[2022-04-22] MEDS ORDERED: MAGNESIUM SULF 50% (8.12 MEQ/2 ML-1 GM VIAL) IVPB ONE (10:23)
[2022-04-22] MEDS ORDERED: MAGNESIUM SULFATE IN WATER 2 GM/50 ML IVPB IVPB ONE (10:45)
[2022-04-22 12:17] LABS: CHLORIDE 108 mmol/L (98-107)
[2022-04-22 13:53] VITALS: BP 98/53; TEMP 97.6
[2022-04-22] MEDS ORDERED: oxyCODONE HCL 5 MG TABLET PO ONE (16:00)
== END 2022-04-22 19:30 | disposition home health service (06) | DRG 470 ==
LOC: FM/S 07:25
PROVIDERS: ADMIT Orthopaedic Surgery; ATTEND Orthopaedic Surgery
PROC: 8E0Y0CZ Robotic Assisted Procedure of Lower Extremity, Open Approach (ICD-10-PCS; 2022-04-21)
PROC: 0SRD0J9 Replacement of Left Knee Joint with Synthetic Substitute, Cemented, Open Approach (ICD-10-PCS; principal; 2022-04-21 10:07)
DX: M17.12 Unilateral primary osteoarthritis, left knee (principal); E11.9 Type 2 diabetes mellitus without complications; I10 Essential (primary) hypertension; E78.5 Hyperlipidemia, unspecified; I45.10 Unspecified right bundle-branch block; I65.29 Occlusion and stenosis of unspecified carotid artery; I35.0 Nonrheumatic aortic (valve) stenosis; Z95.2 Presence of prosthetic heart valve; Z96.651 Presence of right artificial knee joint
CPT/HCPCS: 36415; 73560-TC-LT-FY; 80053; 82962; 83735; 85027; 94760; 97010-GP; 97116-GP; C9803-CS; U0003; U0005

== ENCOUNTER 2022-06-16 06:19 | Day surgery (SDC) | payer OTHER, MEDICARE ==
[2022-06-12 09:40] VITALS: BMI 34.2
[2022-06-16] MEDS ORDERED: MIDAZOLAM HCL 2 MG/2 ML SINGLE DOSE VIAL ONE (07:37)
[2022-06-16] MEDS ORDERED: PROPOFOL 20 ML ONE (07:40)
[2022-06-16] MEDS ORDERED: KETOROLAC TROMETHAMINE 30 MG/1 ML VIAL ONE (07:40)
[2022-06-16] MEDS ORDERED: LIDOCAINE HCL/PF 2% SDV 5ML VIAL ONE (07:40)
[2022-06-16] MEDS ORDERED: ACETAMINOPHEN INJECTION 100 ML IVPB ONE (07:46)
[2022-06-16] MEDS ORDERED: PROMETHAZINE HCL 25 MG/1 ML VIAL IVPUSH PRN (07:49)
[2022-06-16] MEDS ORDERED: ONDANSETRON 4 MG/2 ML VIAL IVPUSH PRN (07:49)
[2022-06-16] MEDS ORDERED: oxyCODONE HCL 5 MG TABLET PO PRN (07:49)
[2022-06-16] MEDS ORDERED: LACTATED RINGERS SOLUTION 1,000 ML IV SCH (08:00)
[2022-06-16] MEDS ORDERED: METOPROLOL TARTRATE 5 MG/5 ML VIAL ONE (08:13)
[2022-06-16] MEDS ORDERED: FENTANYL CITRATE/PF 50 MCG/ML VIAL ONE ×3 (08:37→09:21)
[2022-06-16 09:25] VITALS: RESP 18
[2022-06-16 10:05] VITALS: TEMP 97.8
[2022-06-16 10:39] VITALS: BP 145/81; PULSE 65
== END 2022-06-16 10:55 | disposition home or self-care (01) ==
LOC: FASU 06:19
PROVIDERS: ATTEND Orthopaedic Surgery
PROC: 0SNDXZZ Release Left Knee Joint, External Approach (ICD-10-PCS; principal; 2022-06-16 08:12)
DX: M24.662 Ankylosis, left knee (principal)
CPT/HCPCS: 82962; 94760

== ENCOUNTER 2023-09-09 11:44 | Inpatient (IN) | payer OTHER, MEDICARE ==
[~2023-09-09 11:44] MED LIST changes: +PATIENT'S OWN MEDICATION (NON-FORMULARY) (Alogliptin Benzoate [Alogliptin] 25 MG Tablet) PO SCH; -VANCOMYCIN 1,000 MG VIAL (RESTRICTED TO ID ONLY) IVPB ONE
[2023-09-09] MEDS ORDERED: ACETAMINOPHEN 325 MG TABLET (FP) PO PRN (11:51)
[2023-09-09] MEDS ORDERED: KETOROLAC TROMETHAMINE 15 MG/ML VIAL IVPB PRN ×2 (11:51→12:13)
[2023-09-09] MEDS ORDERED: LABETALOL HCL 5 MG/1 ML (100MG/20 ML VIAL) IVPUSH ONE (11:51)
[2023-09-09] MEDS ORDERED: BENZOCAINE/MENTHOL 1 EACH LOZENGE MM PRN (12:22)
[2023-09-09 13:02] LABS: INR 1.09 (0.83-1.09); PROTHROMBIN TIME (PATIENT) 12.6 SEC (9.7-13.0)
[2023-09-09 13:05] LABS: ACTIVATED PTT 26.4 SECONDS (25.2-36.5)
[2023-09-09 13:06] LABS: BASO % 0.9 % (0-2.0); HEMATOCRIT 48.1 % (32.4-45.2); HEMOGLOBIN 15.8 GM/dL (10.7-15.3); LYMPH % 18.7 % (8-40); MCH 28.5 pg (25.7-33.7); MCHC 32.8 g/dl (32.0-36.0); MEAN CELL VOLUME 86.9 fl (80-96); MEAN PLT VOLUME 9.2 fl (7.5-11.1); MONO % 9.8 % (3.8-10.2); NEUT % 69.6 % (42.8-82.8); PLATELET COUNT 229 10^3/uL (134-434); RBC 5.54 M/mm3 (3.60-5.2); RDW 14.3 % (11.6-15.6); WHITE BLOOD COUNT 6.6 K/mm3 (4.0-10.0)
[2023-09-09] MEDS: guaiFENesin 200 MG/10 ML 10 ML UNIT-DOSE CUPS PO PRN ×2 (13:12→21:35)
[2023-09-09 13:14] LABS: POTASSIUM 3.8 mmol/L (3.5-5.1)
[2023-09-09 13:16] LABS: ALBUMIN 3.6 g/dl (3.4-5.0); BLOOD UREA NITROGEN 22.2 mg/dL (7-18); MAGNESIUM 1.8 mg/dL (1.8-2.4)
[2023-09-09 13:19] LABS: CREATININE 1.2 mg/dL (0.55-1.3); PHOSPHOROUS 3.2 mg/dL (2.5-4.9)
[2023-09-09 13:21] LABS: BILIRUBIN,TOTAL 0.8 mg/dL (0.2-1); TOT PROT 6.8 g/dl (6.4-8.2)
[2023-09-09] MEDS: TICAGRELOR 90 MG TABLET PO SCH ×2 (13:42→21:30)
[2023-09-09] MEDS ORDERED: LOSARTAN POTASSIUM 50 MG TABLET PO ONE (14:00)
[2023-09-09] MEDS: ACETAMINOPHEN 325 MG TABLET (FP) PO PRN (15:07)
[2023-09-09] MEDS: ALBUTEROL SO4 2.5/IPRATROPIUM 0.5 INH SOL 3 ML VIAL.NEB. NEB PRN (15:19)
[2023-09-09] MEDS ORDERED: REMDESIVIR 200 MG in SODIUM CHLORIDE 250 ML IVPB ONE (16:00)
[2023-09-09] MEDS ORDERED: LABETALOL HCL 20 MG/4 ML VIAL ONE (16:06)
[2023-09-09] MEDS: guaiFENesin/CODEINE 5 ML UNIT-DOSE CUPS PO PRN (16:12)
[2023-09-09] MEDS ORDERED: LABETALOL HCL 20 MG/4 ML VIAL IVPUSH ONE (16:30)
[2023-09-09 18:45] LABS: N-TERMINAL BNP 2913.8 pg/ml (5-450)
[2023-09-09] MEDS: MUPIROCIN 2% TOPICAL OINTMENT FOR DECOLONIZATION NS SCH (21:30)
[2023-09-09] MEDS: CHLORHEXIDINE GLUCONATE 4% CLEANSER FOR DECOLONIZATION TP SCH (21:30)
[2023-09-09] MEDS: ROSUVASTATIN CA 20 MG TABLET PO SCH (21:30)
[2023-09-09] MEDS: RANOLAZINE E.R. 500 MG TABLET (FP) PO SCH (21:30)
[2023-09-09] MEDS: metoPROLOL SUCCINATE 25 MG TAB.SR.24H (FP) PO SCH (21:30)
[2023-09-10] MEDS: BENZOCAINE/MENTH/CETYLPYRD CL 1 EACH LOZENGE MM PRN ×2 (03:28→15:55)
[2023-09-10 07:57] LABS: HEMATOCRIT 45.3 % (32.4-45.2); HEMOGLOBIN 15.1 GM/dL (10.7-15.3); MCH 28.8 pg (25.7-33.7); MCHC 33.3 g/dl (32.0-36.0); MEAN CELL VOLUME 86.5 fl (80-96); MEAN PLT VOLUME 9.5 fl (7.5-11.1); PLATELET COUNT 217 10^3/uL (134-434); RBC 5.24 M/mm3 (3.60-5.2); RDW 14.7 % (11.6-15.6); WHITE BLOOD COUNT 5.3 K/mm3 (4.0-10.0)
[2023-09-10] MEDS ORDERED: KETOROLAC TROMETHAMINE 15 MG/ML VIAL IVPB PRN (08:03)
[2023-09-10 08:22] LABS: POTASSIUM 3.9 mmol/L (3.5-5.1)
[2023-09-10 08:31] LABS: CALCIUM 8.5 mg/dL (8.5-10.1)
[2023-09-10 08:32] LABS: ALBUMIN 3.2 g/dl (3.4-5.0); BLOOD UREA NITROGEN 21.4 mg/dL (7-18); MAGNESIUM 1.7 mg/dL (1.8-2.4)
[2023-09-10 08:34] LABS: PHOSPHOROUS 3.6 mg/dL (2.5-4.9)
[2023-09-10 08:35] LABS: CREATININE 1.2 mg/dL (0.55-1.3)
[2023-09-10 08:36] LABS: BILIRUBIN,TOTAL 0.6 mg/dL (0.2-1); TOT PROT 6.2 g/dl (6.4-8.2)
[2023-09-10] MEDS: MULTIVITAMINS (DAILY MVI) TABLET (FP) PO SCH (09:37)
[2023-09-10] MEDS: ASPIRIN 81 MG CHEWABLE TABLETS PO SCH (09:37)
[2023-09-10] MEDS: metoPROLOL SUCCINATE 25 MG TAB.SR.24H (FP) PO SCH ×2 (09:37→21:22)
[2023-09-10] MEDS: TICAGRELOR 90 MG TABLET PO SCH ×2 (09:38→21:22)
[2023-09-10] MEDS: ISOSORBIDE MONONITRATE 30 MG TAB.SR.24H (FP) PO SCH (09:38)
[2023-09-10] MEDS: MUPIROCIN 2% TOPICAL OINTMENT FOR DECOLONIZATION NS SCH ×2 (09:38→21:22)
[2023-09-10] MEDS: RANOLAZINE E.R. 500 MG TABLET (FP) PO SCH ×2 (09:38→21:22)
[2023-09-10] MEDS: ENOXAPARIN NA (PORCINE) 40 MG/0.4 ML DISP.SYRIN SQ SCH (09:38)
[2023-09-10] MEDS: LOSARTAN POTASSIUM 50 MG TABLET PO SCH (09:38)
[2023-09-10] MEDS ORDERED: DEXAMETHASONE SOD PHOSPHATE 10 MG/1 ML VIAL IVPUSH ONE (10:15)
[2023-09-10] MEDS ORDERED: MAGNESIUM SULF 50% (8.12 MEQ/2 ML-1 GM VIAL) IVPB ONE (10:30)
[2023-09-10] MEDS: PANTOPRAZOLE SODIUM 40 MG VIAL IVPUSH SCH (11:59)
[2023-09-10] MEDS: guaiFENesin/CODEINE 5 ML UNIT-DOSE CUPS PO PRN ×2 (15:55→21:26)
[2023-09-10] MEDS: PHENOL 177 ML SPRAY BOTTLE MM PRN (16:26)
[2023-09-10] MEDS ORDERED: IBUPROFEN 600 MG TABLET (FP) PO ONE (16:34)
[2023-09-10] MEDS ORDERED: ACETAMINOPHEN 1000 MG/100 ML BAG IVPB ONE (16:48)
[2023-09-10] MEDS: REMDESIVIR 100 MG in SODIUM CHLORIDE 250 ML IVPB SCH (17:18)
[2023-09-10] MEDS: CHLORHEXIDINE GLUCONATE 4% CLEANSER FOR DECOLONIZATION TP SCH (21:22)
[2023-09-10] MEDS: ROSUVASTATIN CA 20 MG TABLET PO SCH (21:22)
[2023-09-10] MEDS: ACETAMINOPHEN 325 MG TABLET (FP) PO PRN (21:23)
[2023-09-11] MEDS: guaiFENesin/CODEINE 5 ML UNIT-DOSE CUPS PO PRN ×2 (06:14→13:52)
[2023-09-11] MEDS: hydrALAZINE HCL 20 MG/ML VIAL IVPUSH PRN ×2 (08:00→22:28)
[2023-09-11 08:17] LABS: POTASSIUM 4.1 mmol/L (3.5-5.1)
[2023-09-11 08:19] LABS: CALCIUM 8.9 mg/dL (8.5-10.1)
[2023-09-11 08:20] LABS: ALBUMIN 3.5 g/dl (3.4-5.0)
[2023-09-11 08:23] LABS: CREATININE 1.2 mg/dL (0.55-1.3); PHOSPHOROUS 3.3 mg/dL (2.5-4.9)
[2023-09-11 08:24] LABS: BILIRUBIN,TOTAL 0.6 mg/dL (0.2-1)
[2023-09-11 08:25] LABS: TOT PROT 6.6 g/dl (6.4-8.2)
[2023-09-11 08:43] LABS: HEMATOCRIT 44.9 % (32.4-45.2); HEMOGLOBIN 15.2 GM/dL (10.7-15.3); MCH 29.4 pg (25.7-33.7); MCHC 33.8 g/dl (32.0-36.0); MEAN CELL VOLUME 87.1 fl (80-96); MEAN PLT VOLUME 9.2 fl (7.5-11.1); PLATELET COUNT 256 10^3/uL (134-434); RBC 5.16 M/mm3 (3.60-5.2); RDW 14.4 % (11.6-15.6); WHITE BLOOD COUNT 8.4 K/mm3 (4.0-10.0)
[2023-09-11] MEDS: MULTIVITAMINS (DAILY MVI) TABLET (FP) PO SCH (09:00)
[2023-09-11] MEDS: metoPROLOL SUCCINATE 25 MG TAB.SR.24H (FP) PO SCH ×2 (09:00→21:30)
[2023-09-11] MEDS: LOSARTAN POTASSIUM 50 MG TABLET PO SCH (09:01)
[2023-09-11] MEDS: GABAPENTIN 100 MG CAPSULE PO SCH (09:01)
[2023-09-11] MEDS: MUPIROCIN 2% TOPICAL OINTMENT FOR DECOLONIZATION NS SCH ×2 (09:01→21:29)
[2023-09-11] MEDS: ALBUTEROL SO4 2.5/IPRATROPIUM 0.5 INH SOL 3 ML VIAL.NEB. NEB PRN (09:01)
[2023-09-11] MEDS: ISOSORBIDE MONONITRATE 30 MG TAB.SR.24H (FP) PO SCH (09:01)
[2023-09-11] MEDS: RANOLAZINE E.R. 500 MG TABLET (FP) PO SCH ×2 (09:01→21:29)
[2023-09-11] MEDS: ASPIRIN 81 MG CHEWABLE TABLETS PO SCH (09:01)
[2023-09-11] MEDS: PANTOPRAZOLE SODIUM 40 MG VIAL IVPUSH SCH (09:02)
[2023-09-11] MEDS: ENOXAPARIN NA (PORCINE) 40 MG/0.4 ML DISP.SYRIN SQ SCH (09:02)
[2023-09-11] MEDS: TICAGRELOR 90 MG TABLET PO SCH ×2 (09:02→21:29)
[2023-09-11] MEDS ORDERED: DOCUSATE SODIUM 100 MG CAPSULE (FP) PO PRN (09:18)
[2023-09-11] MEDS: CHLORTHALIDONE 25 MG TABLET PO SCH (10:45)
[2023-09-11] MEDS: PHENOL 177 ML SPRAY BOTTLE MM PRN (10:46)
[2023-09-11] MEDS: POLYETHYLENE GLYCOL (HEALTHYLAX) 3350 17 GM PACKET PO PRN (10:46)
[2023-09-11] MEDS: ACETAMINOPHEN 325 MG TABLET (FP) PO PRN (13:53)
[2023-09-11] MEDS ORDERED: REMDESIVIR 100 MG in SODIUM CHLORIDE 250 ML IVPB SCH (15:00)
[2023-09-11] MEDS: REMDESIVIR 100 MG in SODIUM CHLORIDE 250 ML IVPB SCH (17:16)
[2023-09-11] MEDS: CHLORHEXIDINE GLUCONATE 4% CLEANSER FOR DECOLONIZATION TP SCH (21:29)
[2023-09-11] MEDS: ROSUVASTATIN CA 20 MG TABLET PO SCH (21:29)
[2023-09-11] MEDS ORDERED: PANTOPRAZOLE SODIUM 40 MG VIAL IVPUSH SCH (22:49)
[2023-09-12 07:35] LABS: HEMATOCRIT 44.9 % (32.4-45.2); HEMOGLOBIN 14.9 GM/dL (10.7-15.3); MCH 28.9 pg (25.7-33.7); MCHC 33.3 g/dl (32.0-36.0); MEAN CELL VOLUME 86.9 fl (80-96); MEAN PLT VOLUME 8.9 fl (7.5-11.1); PLATELET COUNT 293 10^3/uL (134-434); RBC 5.17 M/mm3 (3.60-5.2); RDW 14.9 % (11.6-15.6); WHITE BLOOD COUNT 11.7 K/mm3 (4.0-10.0)
[2023-09-12 08:01] LABS: POTASSIUM 3.6 mmol/L (3.5-5.1)
[2023-09-12 08:05] LABS: CALCIUM 9.8 mg/dL (8.5-10.1)
[2023-09-12 08:06] LABS: ALBUMIN 3.5 g/dl (3.4-5.0); BLOOD UREA NITROGEN 28.4 mg/dL (7-18); MAGNESIUM 1.8 mg/dL (1.8-2.4)
[2023-09-12 08:09] LABS: PHOSPHOROUS 2.9 mg/dL (2.5-4.9)
[2023-09-12 08:10] LABS: BILIRUBIN,TOTAL 0.8 mg/dL (0.2-1); TOT PROT 6.5 g/dl (6.4-8.2)
[2023-09-12] MEDS: ISOSORBIDE MONONITRATE 30 MG TAB.SR.24H (FP) PO SCH (09:58)
[2023-09-12] MEDS: RANOLAZINE E.R. 500 MG TABLET (FP) PO SCH ×2 (09:58→21:00)
[2023-09-12] MEDS: MULTIVITAMINS (DAILY MVI) TABLET (FP) PO SCH (09:58)
[2023-09-12] MEDS: PANTOPRAZOLE SODIUM 40 MG VIAL IVPUSH SCH (09:58)
[2023-09-12] MEDS: GABAPENTIN 100 MG CAPSULE PO SCH (09:58)
[2023-09-12] MEDS: LOSARTAN POTASSIUM 50 MG TABLET PO SCH (09:59)
[2023-09-12] MEDS: metoPROLOL SUCCINATE 25 MG TAB.SR.24H (FP) PO SCH ×2 (09:59→21:02)
[2023-09-12] MEDS: CHLORTHALIDONE 25 MG TABLET PO SCH (09:59)
[2023-09-12] MEDS: TICAGRELOR 90 MG TABLET PO SCH ×2 (09:59→21:43)
[2023-09-12] MEDS: MUPIROCIN 2% TOPICAL OINTMENT FOR DECOLONIZATION NS SCH ×2 (09:59→21:01)
[2023-09-12] MEDS: ENOXAPARIN NA (PORCINE) 40 MG/0.4 ML DISP.SYRIN SQ SCH (09:59)
[2023-09-12] MEDS: ASPIRIN 81 MG CHEWABLE TABLETS PO SCH (09:59)
[2023-09-12] MEDS: ACETAMINOPHEN 325 MG TABLET (FP) PO PRN (10:07)
[2023-09-12 13:37] LABS: EPI CELLS 3 /uL (0-25.1); HYALINE CASTS 0 /uL (0-3.1); PH,URINE 6.5 (5.0-8.0); URINE APPEARANCE CLEAR; URINE BACTERIA 23 /uL (0-1359); URINE BILIRUBIN NEGATIVE (NEGATIVE); URINE COLOR YELLOW; URINE GLUCOSE (UA) NEGATIVE (NEGATIVE); URINE KETONE NEGATIVE (NEGATIVE); URINE LEUK ESTERASE TRACE (NEGATIVE); URINE NITRITE NEGATIVE (NEGATIVE); URINE PROTEIN 3+ (NEGATIVE); URINE RBC 7 /uL (0-23.9); URINE WBC 4 /uL (0-25.8)
[2023-09-12] MEDS: APIXABAN 5 MG TABLET PO SCH ×2 (15:35→21:00)
[2023-09-12] MEDS: guaiFENesin/CODEINE 5 ML UNIT-DOSE CUPS PO PRN (15:35)
[2023-09-12] MEDS ORDERED: MAGNESIUM SULFATE IN WATER 2 GM/50 ML IVPB IVPB ONE (16:30)
[2023-09-12] MEDS ORDERED: POTASSIUM CHLORIDE TABS 20 MEQ TABLET.ER (FP) PO ONE (16:30)
[2023-09-12] MEDS: hydrALAZINE HCL 20 MG/ML VIAL IVPUSH PRN (18:00)
[2023-09-12] MEDS: ROSUVASTATIN CA 20 MG TABLET PO SCH (21:00)
[2023-09-12] MEDS: CHLORHEXIDINE GLUCONATE 4% CLEANSER FOR DECOLONIZATION TP SCH (21:01)
[2023-09-13] MEDS: hydrALAZINE HCL 20 MG/ML VIAL IVPUSH PRN (06:27)
[2023-09-13] MEDS ORDERED: FUROSEMIDE 40 MG/4 ML INJECTABLE VIAL IVPUSH ONE (07:45)
[2023-09-13] MEDS: ACETAMINOPHEN 325 MG TABLET (FP) PO PRN ×2 (08:05→18:03)
[2023-09-13 08:07] LABS: HEMATOCRIT 46.2 % (32.4-45.2); HEMOGLOBIN 15.6 GM/dL (10.7-15.3); MCH 29.1 pg (25.7-33.7); MCHC 33.8 g/dl (32.0-36.0); MEAN CELL VOLUME 86.2 fl (80-96); MEAN PLT VOLUME 9.2 fl (7.5-11.1); PLATELET COUNT 299 10^3/uL (134-434); RBC 5.36 M/mm3 (3.60-5.2); WHITE BLOOD COUNT 9.5 K/mm3 (4.0-10.0)
[2023-09-13 08:24] LABS: POTASSIUM 3.8 mmol/L (3.5-5.1)
[2023-09-13 08:30] LABS: ALBUMIN 3.5 g/dl (3.4-5.0); BLOOD UREA NITROGEN 27.2 mg/dL (7-18); CALCIUM 8.9 mg/dL (8.5-10.1)
[2023-09-13 08:31] LABS: MAGNESIUM 2.2 mg/dL (1.8-2.4)
[2023-09-13 08:32] LABS: CREATININE 1.2 mg/dL (0.55-1.3)
[2023-09-13 08:33] LABS: PHOSPHOROUS 3.3 mg/dL (2.5-4.9)
[2023-09-13 08:34] LABS: BILIRUBIN,TOTAL 0.8 mg/dL (0.2-1); TOT PROT 6.4 g/dl (6.4-8.2)
[2023-09-13 08:35] LABS: N-TERMINAL BNP 790.5 pg/ml (5-450)
[2023-09-13] MEDS ORDERED: methylPREDNISolone NA SUCC 40 MG/1 ML VIAL IVPUSH ONE (09:00)
[2023-09-13] MEDS ORDERED: PIPERACILLIN/TAZOB 3.375 GM 3.375 GM in DEXTROSE 5%-WATER - 50 ML IVPB SCH (10:00)
[2023-09-13] MEDS: LOSARTAN POTASSIUM 50 MG TABLET PO SCH (11:00)
[2023-09-13] MEDS: MUPIROCIN 2% TOPICAL OINTMENT FOR DECOLONIZATION NS SCH ×2 (11:37→21:54)
[2023-09-13] MEDS: ASPIRIN 81 MG CHEWABLE TABLETS PO SCH (11:37)
[2023-09-13] MEDS: TICAGRELOR 90 MG TABLET PO SCH (11:38)
[2023-09-13] MEDS: ISOSORBIDE MONONITRATE 30 MG TAB.SR.24H (FP) PO SCH (11:44)
[2023-09-13] MEDS: APIXABAN 5 MG TABLET PO SCH ×2 (11:44→21:54)
[2023-09-13] MEDS: GABAPENTIN 100 MG CAPSULE PO SCH (11:44)
[2023-09-13] MEDS: metoPROLOL SUCCINATE 25 MG TAB.SR.24H (FP) PO SCH ×2 (11:45→21:55)
[2023-09-13] MEDS: RANOLAZINE E.R. 500 MG TABLET (FP) PO SCH ×2 (11:45→21:54)
[2023-09-13] MEDS: PANTOPRAZOLE SODIUM 40 MG VIAL IVPUSH SCH (11:45)
[2023-09-13] MEDS: MULTIVITAMINS (DAILY MVI) TABLET (FP) PO SCH (11:45)
[2023-09-13] MEDS: methylPREDNISolone NA SUCC 40 MG/1 ML VIAL IVPUSH SCH ×2 (15:00→21:54)
[2023-09-13] MEDS: POLYETHYLENE GLYCOL (HEALTHYLAX) 3350 17 GM PACKET PO PRN (18:02)
[2023-09-13] MEDS: PIPERACILLIN/TAZOB 3.375 GM 3.375 GM in DEXTROSE 5%-WATER - 50 ML IVPB SCH (18:02)
[2023-09-13] MEDS: CHLORTHALIDONE 25 MG TABLET PO SCH (19:02)
[2023-09-13] MEDS: INSULIN (LEVEMIR) 100 UNITS/ML UNITS SQ SCH (21:54)
[2023-09-13] MEDS: ROSUVASTATIN CA 20 MG TABLET PO SCH (21:54)
[2023-09-13] MEDS: CHLORHEXIDINE GLUCONATE 4% CLEANSER FOR DECOLONIZATION TP SCH (21:54)
[2023-09-14] MEDS: PIPERACILLIN/TAZOB 3.375 GM 3.375 GM in DEXTROSE 5%-WATER - 50 ML IVPB SCH ×3 (02:49→17:24)
[2023-09-14] MEDS: methylPREDNISolone NA SUCC 40 MG/1 ML VIAL IVPUSH SCH ×2 (06:19→11:00)
[2023-09-14 06:45] LABS: BASO % 0.2 % (0-2.0); HEMATOCRIT 46.7 % (32.4-45.2); HEMOGLOBIN 15.9 GM/dL (10.7-15.3); LYMPH % 11.5 % (8-40); MCH 29.3 pg (25.7-33.7); MCHC 34.1 g/dl (32.0-36.0); MEAN CELL VOLUME 85.9 fl (80-96); MONO % 2.7 % (3.8-10.2); NEUT % 85.6 % (42.8-82.8); PLATELET COUNT 334 10^3/uL (134-434); RBC 5.44 M/mm3 (3.60-5.2); RDW 14.6 % (11.6-15.6)
[2023-09-14 07:17] LABS: MAGNESIUM 2.2 mg/dL (1.8-2.4)
[2023-09-14 07:21] LABS: PHOSPHOROUS 5.2 mg/dL (2.5-4.9)
[2023-09-14] MEDS: RANOLAZINE E.R. 500 MG TABLET (FP) PO SCH ×2 (09:23→21:39)
[2023-09-14] MEDS: PANTOPRAZOLE SODIUM 40 MG VIAL IVPUSH SCH (09:23)
[2023-09-14] MEDS: ISOSORBIDE MONONITRATE 30 MG TAB.SR.24H (FP) PO SCH (09:23)
[2023-09-14] MEDS: GABAPENTIN 100 MG CAPSULE PO SCH (09:23)
[2023-09-14] MEDS: MULTIVITAMINS (DAILY MVI) TABLET (FP) PO SCH (09:23)
[2023-09-14] MEDS: LOSARTAN POTASSIUM 50 MG TABLET PO SCH (09:23)
[2023-09-14] MEDS: MUPIROCIN 2% TOPICAL OINTMENT FOR DECOLONIZATION NS SCH (09:24)
[2023-09-14] MEDS: APIXABAN 5 MG TABLET PO SCH ×2 (09:24→21:40)
[2023-09-14] MEDS: CLOPIDOGREL BISULFATE 75 MG TABLET (FP) PO SCH (09:24)
[2023-09-14] MEDS: metoPROLOL SUCCINATE 25 MG TAB.SR.24H (FP) PO SCH ×2 (09:27→21:41)
[2023-09-14] MEDS ORDERED: BISACODYL 5 MG TABLET.DR (FP) PO PRN (09:46)
[2023-09-14] MEDS: ACETAMINOPHEN 325 MG TABLET (FP) PO PRN (10:35)
[2023-09-14] MEDS: INSULIN SLIDING SCALE (NOVOLOG) 1 VIAL SQ SCH ×3 (13:34→21:48)
[2023-09-14 15:22] VITALS: BMI 34.0
[2023-09-14] MEDS: INSULIN (LEVEMIR) 100 UNITS/ML UNITS SQ SCH (21:39)
[2023-09-14] MEDS: ROSUVASTATIN CA 20 MG TABLET PO SCH (21:40)
[2023-09-14] MEDS: CHLORHEXIDINE GLUCONATE 4% CLEANSER FOR DECOLONIZATION TP SCH (21:40)
[2023-09-14] MEDS ORDERED: INSULIN SLIDING SCALE (NOVOLOG) 1 VIAL SQ SCH (22:00)
[2023-09-15] MEDS: PIPERACILLIN/TAZOB 3.375 GM 3.375 GM in DEXTROSE 5%-WATER - 50 ML IVPB SCH ×3 (01:54→17:43)
[2023-09-15] MEDS: INSULIN SLIDING SCALE (NOVOLOG) 1 VIAL SQ SCH ×4 (06:27→22:13)
[2023-09-15 06:59] LABS: HEMATOCRIT 44.6 % (32.4-45.2); HEMOGLOBIN 15.1 GM/dL (10.7-15.3); MCH 29.1 pg (25.7-33.7); MCHC 33.9 g/dl (32.0-36.0); MEAN CELL VOLUME 85.8 fl (80-96); MEAN PLT VOLUME 9.2 fl (7.5-11.1); PLATELET COUNT 378 10^3/uL (134-434); RDW 14.4 % (11.6-15.6); WHITE BLOOD COUNT 14.9 K/mm3 (4.0-10.0)
[2023-09-15 07:12] LABS: POTASSIUM 4.2 mmol/L (3.5-5.1)
[2023-09-15 07:17] LABS: ALBUMIN 3.1 g/dl (3.4-5.0); BLOOD UREA NITROGEN 50.1 mg/dL (7-18); MAGNESIUM 2.4 mg/dL (1.8-2.4)
[2023-09-15 07:20] LABS: CREATININE 1.7 mg/dL (0.55-1.3); PHOSPHOROUS 5.1 mg/dL (2.5-4.9)
[2023-09-15 07:21] LABS: BILIRUBIN,TOTAL 0.9 mg/dL (0.2-1); TOT PROT 6.3 g/dl (6.4-8.2)
[2023-09-15 07:27] LABS: CALCIUM 8.5 mg/dL (8.5-10.1)
[2023-09-15] MEDS ORDERED: SODIUM CHLORIDE 1,000 ML IV STA ×2 (07:40→07:55)
[2023-09-15] MEDS: ACETAMINOPHEN 325 MG TABLET (FP) PO PRN ×2 (09:52→21:43)
[2023-09-15] MEDS: ISOSORBIDE MONONITRATE 30 MG TAB.SR.24H (FP) PO SCH (09:53)
[2023-09-15] MEDS: RANOLAZINE E.R. 500 MG TABLET (FP) PO SCH ×2 (09:53→21:42)
[2023-09-15] MEDS: metoPROLOL SUCCINATE 25 MG TAB.SR.24H (FP) PO SCH ×2 (09:53→21:42)
[2023-09-15] MEDS: APIXABAN 5 MG TABLET PO SCH ×2 (09:53→21:42)
[2023-09-15] MEDS: MULTIVITAMINS (DAILY MVI) TABLET (FP) PO SCH (09:54)
[2023-09-15] MEDS: methylPREDNISolone NA SUCC 40 MG/1 ML VIAL IVPUSH SCH (09:54)
[2023-09-15] MEDS: GABAPENTIN 100 MG CAPSULE PO SCH (09:54)
[2023-09-15] MEDS: PANTOPRAZOLE SODIUM 40 MG VIAL IVPUSH SCH (09:54)
[2023-09-15] MEDS: CLOPIDOGREL BISULFATE 75 MG TABLET (FP) PO SCH (09:54)
[2023-09-15] MEDS ORDERED: DEXTROSE 5%-NORMAL SALINE 1,000 ML IV SCH (11:45)
[2023-09-15] MEDS: SODIUM CHLORIDE 1,000 ML IV SCH (13:33)
[2023-09-15] MEDS ORDERED: INSULIN (NOVOLOG) ASPART 100 UNITS/ML 10ML VIAL ONE ×2 (17:52→21:39)
[2023-09-15] MEDS: guaiFENesin/CODEINE 5 ML UNIT-DOSE CUPS PO PRN (21:41)
[2023-09-15] MEDS: ROSUVASTATIN CA 20 MG TABLET PO SCH (21:42)
[2023-09-15] MEDS: CHLORHEXIDINE GLUCONATE 4% CLEANSER FOR DECOLONIZATION TP SCH (21:43)
[2023-09-15] MEDS: INSULIN (LEVEMIR) 100 UNITS/ML UNITS SQ SCH (22:13)
[2023-09-16] MEDS: PIPERACILLIN/TAZOB 3.375 GM 3.375 GM in DEXTROSE 5%-WATER - 50 ML IVPB SCH ×3 (03:00→17:15)
[2023-09-16] MEDS: SODIUM CHLORIDE 1,000 ML IV SCH (03:56)
[2023-09-16] MEDS: INSULIN SLIDING SCALE (NOVOLOG) 1 VIAL SQ SCH ×4 (06:56→21:31)
[2023-09-16 07:45] LABS: BASO % 0.2 % (0-2.0); EOS % 0.1 % (0-4.5); HEMATOCRIT 45.2 % (32.4-45.2); HEMOGLOBIN 14.9 GM/dL (10.7-15.3); LYMPH % 10.4 % (8-40); MCH 28.5 pg (25.7-33.7); MEAN CELL VOLUME 86.3 fl (80-96); MEAN PLT VOLUME 8.9 fl (7.5-11.1); MONO % 7.9 % (3.8-10.2); NEUT % 81.4 % (42.8-82.8); PLATELET COUNT 410 10^3/uL (134-434); RBC 5.24 M/mm3 (3.60-5.2); RDW 15.1 % (11.6-15.6); WHITE BLOOD COUNT 13.6 K/mm3 (4.0-10.0)
[2023-09-16 07:51] LABS: POTASSIUM 3.9 mmol/L (3.5-5.1)
[2023-09-16 07:53] LABS: ALBUMIN 3.2 g/dl (3.4-5.0); BLOOD UREA NITROGEN 46.3 mg/dL (7-18); CALCIUM 8.7 mg/dL (8.5-10.1); MAGNESIUM 2.4 mg/dL (1.8-2.4)
[2023-09-16 07:56] LABS: CREATININE 1.5 mg/dL (0.55-1.3); PHOSPHOROUS 3.8 mg/dL (2.5-4.9)
[2023-09-16 07:58] LABS: BILIRUBIN,TOTAL 0.4 mg/dL (0.2-1); TOT PROT 6.4 g/dl (6.4-8.2)
[2023-09-16] MEDS: RANOLAZINE E.R. 500 MG TABLET (FP) PO SCH ×2 (09:18→21:25)
[2023-09-16] MEDS: ACETAMINOPHEN 325 MG TABLET (FP) PO PRN (09:18)
[2023-09-16] MEDS: predniSONE 20 MG TABLET (UD) PO SCH (09:18)
[2023-09-16] MEDS: CLOPIDOGREL BISULFATE 75 MG TABLET (FP) PO SCH (09:18)
[2023-09-16] MEDS: APIXABAN 5 MG TABLET PO SCH ×2 (09:18→21:25)
[2023-09-16] MEDS: MULTIVITAMINS (DAILY MVI) TABLET (FP) PO SCH (09:18)
[2023-09-16] MEDS: GABAPENTIN 100 MG CAPSULE PO SCH (09:18)
[2023-09-16] MEDS: ISOSORBIDE MONONITRATE 30 MG TAB.SR.24H (FP) PO SCH (09:19)
[2023-09-16] MEDS: POLYETHYLENE GLYCOL (HEALTHYLAX) 3350 17 GM PACKET PO SCH ×2 (09:24→21:24)
[2023-09-16] MEDS: PANTOPRAZOLE 40 MG TABLET PO SCH (09:26)
[2023-09-16] MEDS: metoPROLOL SUCCINATE 25 MG TAB.SR.24H (FP) PO SCH ×2 (09:26→21:32)
[2023-09-16] MEDS ORDERED: BISACODYL 5 MG TABLET.DR (FP) PO ONE (10:00)
[2023-09-16] MEDS: SODIUM CHLORIDE 0.45% 1,000 ML IV SCH ×2 (17:14→21:58)
[2023-09-16] MEDS: ROSUVASTATIN CA 20 MG TABLET PO SCH (21:25)
[2023-09-16] MEDS: CHLORHEXIDINE GLUCONATE 4% CLEANSER FOR DECOLONIZATION TP SCH (21:26)
[2023-09-16] MEDS: INSULIN (LEVEMIR) 100 UNITS/ML UNITS SQ SCH (21:26)
[2023-09-16] MEDS: hydrALAZINE HCL 20 MG/ML VIAL IVPUSH PRN (22:34)
[2023-09-17] MEDS: PIPERACILLIN/TAZOB 3.375 GM 3.375 GM in DEXTROSE 5%-WATER - 50 ML IVPB SCH ×2 (02:23→09:50)
[2023-09-17] MEDS: INSULIN SLIDING SCALE (NOVOLOG) 1 VIAL SQ SCH ×2 (06:49→12:49)
[2023-09-17 08:24] LABS: HEMATOCRIT 46.2 % (32.4-45.2); HEMOGLOBIN 15.1 GM/dL (10.7-15.3); MCH 28.4 pg (25.7-33.7); MCHC 32.7 g/dl (32.0-36.0); MEAN CELL VOLUME 86.9 fl (80-96); PLATELET COUNT 369 10^3/uL (134-434); RBC 5.32 M/mm3 (3.60-5.2); RDW 14.7 % (11.6-15.6); WHITE BLOOD COUNT 12.6 K/mm3 (4.0-10.0)
[2023-09-17] MEDS: ALBUTEROL SO4 2.5/IPRATROPIUM 0.5 INH SOL 3 ML VIAL.NEB. NEB PRN (08:42)
[2023-09-17 08:43] LABS: BLOOD UREA NITROGEN 42.7 mg/dL (7-18); CALCIUM 9.4 mg/dL (8.5-10.1); MAGNESIUM 2.1 mg/dL (1.8-2.4)
[2023-09-17] MEDS: guaiFENesin/CODEINE 5 ML UNIT-DOSE CUPS PO PRN (08:43)
[2023-09-17 08:45] LABS: PHOSPHOROUS 2.3 mg/dL (2.5-4.9)
[2023-09-17 08:46] LABS: BILIRUBIN,TOTAL 0.4 mg/dL (0.2-1); CREATININE 1.4 mg/dL (0.55-1.3)
[2023-09-17 08:47] LABS: TOT PROT 6.1 g/dl (6.4-8.2)
[2023-09-17] MEDS: RANOLAZINE E.R. 500 MG TABLET (FP) PO SCH ×2 (08:48→09:48)
[2023-09-17] MEDS ORDERED: MAGNESIUM HYDROX 2400MG/30ML ORAL SUSPENSION 30 ML CUP PO ONE (09:30)
[2023-09-17] MEDS ORDERED: NAPH,MB-DB/K PH,MBDB POWDER PACKET PO ONE (09:30)
[2023-09-17] MEDS: ISOSORBIDE MONONITRATE 30 MG TAB.SR.24H (FP) PO SCH (09:47)
[2023-09-17] MEDS: metoPROLOL SUCCINATE 25 MG TAB.SR.24H (FP) PO SCH (09:47)
[2023-09-17] MEDS: predniSONE 20 MG TABLET (UD) PO SCH (09:48)
[2023-09-17] MEDS: GABAPENTIN 100 MG CAPSULE PO SCH (09:49)
[2023-09-17] MEDS: PANTOPRAZOLE 40 MG TABLET PO SCH (09:49)
[2023-09-17] MEDS: MULTIVITAMINS (DAILY MVI) TABLET (FP) PO SCH (09:49)
[2023-09-17 10:07] VITALS: RESP 18; TEMP 97.7
[2023-09-17] MEDS ORDERED: FLUTICASONE/UMECLIDIN/VILANTER(200-62.5-25 TRELEGY ELLIPTA) INAHLER IH SCH (10:15)
[2023-09-17] MEDS ORDERED: GLYCERIN 1 RECTAL SUPPOSITORY, ADULT RC ONE (10:30)
[2023-09-17] MEDS ORDERED: POLYETHYLENE GLYCOL (HEALTHYLAX) 3350 17 GM PACKET PO SCH (14:00)
[2023-09-17 14:46] VITALS: BP 130/70
[2023-09-17 16:25] VITALS: PULSE 68
== END 2023-09-17 16:51 | disposition home or self-care (01) | DRG 177 ==
LOC: JICU 11:44
PROVIDERS: ADMIT Family Medicine; ATTEND Family Medicine
PROC: XW033E5 Introduction of Remdesivir Anti-infective into Peripheral Vein, Percutaneous Approach, New Technology Group 5 (ICD-10-PCS; principal; 2023-09-09)
DX: U07.1 COVID-19 (principal); J12.1 Respiratory syncytial virus pneumonia; N17.9 Acute kidney failure, unspecified; I42.1 Obstructive hypertrophic cardiomyopathy; E78.5 Hyperlipidemia, unspecified; E11.9 Type 2 diabetes mellitus without complications; Z95.2 Presence of prosthetic heart valve; I16.0 Hypertensive urgency; M48.02 Spinal stenosis, cervical region; I12.9 Hypertensive chronic kidney disease with stage 1 through stage 4 chronic kidney disease, or unspecified chronic kidney disease; E11.22 Type 2 diabetes mellitus with diabetic chronic kidney disease; N18.9 Chronic kidney disease, unspecified; I48.0 Paroxysmal atrial fibrillation; I25.10 Atherosclerotic heart disease of native coronary artery without angina pectoris; I45.10 Unspecified right bundle-branch block; R80.9 Proteinuria, unspecified; J98.01 Acute bronchospasm; R50.9 Fever, unspecified; R00.0 Tachycardia, unspecified; K59.00 Constipation, unspecified; E86.0 Dehydration
CPT/HCPCS: 0241U-QW; 36415; 71045-TC-FY; 80053; 81003; 82550; 82962; 83036; 83605; 83735; 83880; 84100; 84300; 84439; 84443; 84484; 85025; 85027; 85610; 85730; 86140; 87040; 87651; 93005; 93010; 94010; 94640; 94761; 97116-GP; 97161-GP; J0248

== ENCOUNTER 2024-08-04 04:10 | Day surgery (SDC) | payer OTHER, MEDICARE ==
[2024-07-25 12:36] VITALS: BMI 33.2
[2024-08-04] MEDS ORDERED: LIDOCAINE HCL/PF 1% SDV 5ML VIAL ONE (07:12)
[2024-08-04] MEDS ORDERED: BUPIVACAINE HCL/PF 0.5% (5MG/ML) 10 ML VIAL ONE (07:12)
[2024-08-04] MEDS ORDERED: ACETAMINOPHEN 500 MG TABLET (FP) PO PRN (08:36)
[2024-08-04 10:34] VITALS: BP 154/67; PULSE 76; RESP 20; TEMP 97.3
== END 2024-08-04 12:00 | disposition home or self-care (01) ==
LOC: JASU-SURG 04:10
PROVIDERS: ATTEND Pain Medicine Pain Medicine
DX: Z53.9 Procedure and treatment not carried out, unspecified reason (principal)